=== PATIENT | male | born 1945 | race Caucasian/White ===

== ENCOUNTER 2016-06-02 13:15 | Outpatient (RCR) | payer MEDICARE, MEDICAID ==
[~2016-06-02] VITALS: Ht 182.9 cm; Wt 97.5 kg
[~2016-06-02 13:15] MED LIST: OXYCODONE HCL10 MG ORAL; PROGRAF1 MG ORAL
== END 2016-06-24 | disposition home or self-care (01) ==
LOC: WCC 13:15
DX: L97.322 Non-pressure chronic ulcer of left ankle with fat layer exposed (principal); L03.116 Cellulitis of left lower limb; R60.0 Localized edema; Z94.4 Liver transplant status
CPT/HCPCS: 11042; 11043; 87070; 87181; 87205

== ENCOUNTER → 2016-06-16 | Outpatient (CLI) | payer MEDICARE, MEDICAID ==
[~2016-06-16] MED LIST changes: +LEVAQUIN500 MG ORAL
--- NOTE | 2016-06-19 12:35 | Diagnostic Imaging Report ---
APPROVED REPORT CPT Code: 25591 Present Symptoms Lower Extremity Pain: Left Comments: Right foot ulcer R/O DVT Limited compression used due to pain. LEFT LEG: Venous imaging reveals a patent deep venous system. There is no evidence of thrombus within the femoral, popliteal or tibial segments. The greater saphenous vein is also within normal limits. Doppler indicates normal spontaneous flow within these segments.
== END | disposition home or self-care (01) ==
LOC: RAD 13:59
DX: I82.409 Acute embolism and thrombosis of unspecified deep veins of unspecified lower extremity (principal)
CPT/HCPCS: 93971

== ENCOUNTER 2016-06-30 13:00 | Outpatient (RCR) | payer MEDICARE, MEDICAID ==
[~2016-06-30 13:00] MED LIST changes: -LEVAQUIN500 MG ORAL
== END 2016-07-22 | disposition home or self-care (01) ==
LOC: WCC 13:00
DX: L97.322 Non-pressure chronic ulcer of left ankle with fat layer exposed (principal); L03.116 Cellulitis of left lower limb; R60.0 Localized edema
CPT/HCPCS: 11042; 15271; 29580; Q4133

== ENCOUNTER → 2016-07-09 | Outpatient (CLI) | payer MEDICARE, MEDICAID ==
[~2016-07-09] MED LIST changes: +LEVAQUIN500 MG ORAL
--- NOTE | 2016-07-09 16:01 | Diagnostic Imaging Report ---
Indication: Nonhealing wound Technique: Sagittal, axial, and coronal T1 weighted and STIR images of the left tibia and fibula Comparison: None Findings: A marker shine location of a wound in the medial right leg. There is some thickening of the dermis, but minimal if any edema of the subcutaneous fat. There is no evidence of osseous marrow abnormalities to suggest acute off myelitis. There is some edema of the anterolateral and posterolateral subcutaneous fat distally. No defined fluid collections to suggest abscess are evident. Impression: Mild soft tissue abnormality, as described No findings to suggest acute osteomyelitis
== END | disposition home or self-care (01) ==
LOC: MRI 14:11
DX: S81.801A Unspecified open wound, right lower leg, initial encounter (principal); X58.XXXA Exposure to other specified factors, initial encounter; Y93.9 Activity, unspecified; Y92.9 Unspecified place or not applicable

== ENCOUNTER 2016-07-28 12:30 | Outpatient (RCR) | payer MEDICARE, MEDICAID ==
[~2016-07-28 12:30] MED LIST changes: -LEVAQUIN500 MG ORAL
[2016-08-04] MEDS ORDERED: LEVAQUIN500 MG ORAL (18:38)
== END 2016-08-22 | disposition home or self-care (01) ==
LOC: WCC 12:30
DX: L97.322 Non-pressure chronic ulcer of left ankle with fat layer exposed (principal); L03.116 Cellulitis of left lower limb; R60.0 Localized edema; Z94.4 Liver transplant status; Z96.649 Presence of unspecified artificial hip joint
CPT/HCPCS: 11042; 15271; 29580; Q4133

== ENCOUNTER 2016-08-04 15:27 | Emergency (ER) | payer MEDICARE, MEDICAID ==
[~2016-08-04] VITALS: Ht 182.9 cm; Wt 98.0 kg
[2016-08-04 15:41] VITALS: BP 136/91
[2016-08-04 16:39] LABS: MEAN CORPUSCULAR HGB CONC 33.2 G/DL (32.0-36.0); MEAN CORPUSCULAR VOLUME 99 FL (80-99); MEAN PLATELET VOLUME 10.9 FL (6.5-10.1); PLATELET COUNT 92 K/UL (150-450); RED BLOOD COUNT 4.34 M/UL (4.70-6.10); RED CELL DISTRIBUTION WIDTH 13.4 % (11.6-14.8); WHITE BLOOD COUNT 8.8 K/UL (4.8-10.8)
[2016-08-04 16:47] LABS: ALANINE AMINOTRANSFERASE 10 U/L (3-41); ALBUMIN/GLOBULIN RATIO 1.2 (1.0-2.7); ANION GAP 15 (5-15); ASPARTATE AMINO TRANSFERASE 34 U/L (5-40); CALCIUM 9.4 mg/dL (8.6-10.2); CARBON DIOXIDE 24 mEQ/L (20-30); CHLORIDE 96 mEQ/L (98-107); CREATININE 2.3 mg/dL (0.7-1.2); HEMOLYSIS 10; LIPASE 15 U/L (< 60); POTASSIUM 4.6 mEQ/L (3.4-4.9); SODIUM 135 mEQ/L (135-145); TOTAL PROTEIN 7.3 g/dL (6.6-8.7)
[2016-08-04 16:51] LABS: TROPONIN I < 0.30 ng/mL (<=0.30)
[2016-08-04 16:57] LABS: CKMB < 1.5 ng/mL (< 6.7)
[2016-08-04 17:05] LABS: BILIRUBIN,DIRECT 0.3 mg/dL (0.1-0.3)
[2016-08-04 17:49] VITALS: BP 141/79
[2016-08-04 17:52] LABS: BAND NEUTROPHILS % (MANUAL) 3 % (0-8); BASOPHILS % (MANUAL) 0 % (0-2); EOSINOPHILS % (MANUAL) 0 % (0-3); LYMPHOCYTES % (MANUAL) 7 % (20-45); NEUTROPHILS % (MANUAL) 82 % (45-75); PLATELET ESTIMATE DECREASED; PLATELET MORPHOLOGY NORMAL; TOTAL CELLS COUNTED 100
[2016-08-04] MEDS ORDERED: LEVAQUIN500 MG ORAL (18:38)
[2016-08-04 18:52] VITALS: BP_SYST 135; BP_SYST 141; BP_DIAS 78; BP_DIAS 79
--- NOTE | 2016-08-07 23:05 | Emergency Room Report ---
History of Present Illness General Chief Complaint: General Complaint Source: Patient, Medical Record Present Illness HPI Patient presents with complaints of worsening redness to the left foot, patient has had long-standing wound care to that leg And now there is an open wound with discharge patient had a delineation of a black fer at the site of the infection and appears that the area has increased from that area Patient himself denies any fevers denies any chest pain or shortness of breath denies any back or flank pain Denies any vomiting or diarrhea Allergies: Coded Allergies: HEPARIN (Verified Allergy, Unknown, 07/09/15) pt does not know Patient History Past Medical History: see triage record Pertinent Family History: none Reviewed Nursing Documentation: PMH: Agreed, PSxH: Agreed Nursing Documentation-PMH Hx Cardiac Problems: No Hx Cancer: No Hx Gastrointestinal Problems: No Hx Dialysis: Yes - [id number] Hx Neurological Problems: No Review of Systems All Other Systems: negative except mentioned in HPI Physical Exam Vital Signs Date Time Temp Pulse Resp B/P Pulse Ox O2 Delivery O2 Flow Rate FiO2 08/04/16 15:31 99.1 106 16 136/91 95 Room Air Sp02 EP Interpretation: reviewed, normal General Appearance: no apparent distress Head: normocephalic, atraumatic Eyes: bilateral eye EOMI, bilateral eye PERRL ENT: normal pharynx Neck: full range of motion, supple Respiratory: lungs clear Cardiovascular #1: regular rate, rhythm, no edema, no gallop, no JVD Gastrointestinal: non tender, soft, no mass Musculoskeletal: normal inspection Neurologic: alert, oriented x3, responsive Skin: other - Patient has a concerning open wound on the left ankle region with erythema down to the toes and appears that the erythema is extending past the demarcated area Lymphatic: no adenopathy Medical Decision Making Diagnostic Impression: Primary Impression: AMA Additional Impression: open wound cellulitis ER Course Given the patient's history examined presentation Patient had blood work initiated along with IV hydration and antibiotics At this time discussion was made with the patient's resident program specialist He also agrees that given the aggressive nature of this infection and the patient's findings he requires admission to the hospital I discussed this with the patient Patient reports that he has multiple significant events coming up and cannot stay in the hospital he understands that leaving at this time currently to worsening symptoms a possible loss of limb, possible worsening symptoms leading to Patient is awake alert and refusing further inpatient care CBC 8 Platelets are low BUN and creatinine elevated at 26 and 2.3 respectively Last Vital Signs Date Time Temp Pulse Resp B/P Pulse Ox O2 Delivery O2 Flow Rate FiO2 08/04/16 18:52 99.1 79 16 141/79 99 Room Air Status: improved Disposition: AGAINST MEDICAL ADVICE Condition: Serious Scripts Levofloxacin* (LEVAQUIN*) 500 Mg Tablet 500 MG ORAL DAILY, #10 TAB Prov: MARCY DELACRUZ D.O. 08/04/16 Referrals: ELOISA JACOME (PCP) Patient Instructions: Cellulitis Additional Instructions: The wound that you have is extremely concerning, it is open in the area of redness that started to increase past the demarcated area by her specialist. The kidney function appears to be worsening from previous Given her immunocompromised state and the above mentioned reasons, it is important for you to be in the hospital Bleeding at this time AGAINST MEDICAL ADVICE, can lead to worsening symptoms, possible loss of life or limb. Given this information dorsal choosing to leave AGAINST MEDICAL ADVICE. MARCY DELACRUZ D.O. Aug 07, 2016 23:05
== END 2016-08-04 18:52 | disposition left against medical advice (07) ==
LOC: EDBEDREQ 16:26 → EMR 17:00
DX: S91.302A Unspecified open wound, left foot, initial encounter (principal); L03.116 Cellulitis of left lower limb; X58.XXXA Exposure to other specified factors, initial encounter; Y93.9 Activity, unspecified; Y92.9 Unspecified place or not applicable; Z88.8 Allergy status to other drugs, medicaments and biological substances
CPT/HCPCS: 36415; 80053; 82248; 82550; 82553; 83605; 83690; 84484; 85007; 85025; 87040; 87070; 87181; 87205; 96360; 96374; 99284; J1956

== ENCOUNTER 2016-08-25 13:00 | Outpatient (RCR) | payer MEDICARE, MEDICAID ==
[~2016-08-25 13:00] MED LIST changes: +LEVAQUIN500 MG ORAL
== END 2016-09-21 | disposition home or self-care (01) ==
LOC: WCC 13:00
DX: L97.322 Non-pressure chronic ulcer of left ankle with fat layer exposed (principal); L03.116 Cellulitis of left lower limb; R60.0 Localized edema; Z96.649 Presence of unspecified artificial hip joint; Z94.4 Liver transplant status; Z86.19 Personal history of other infectious and parasitic diseases
CPT/HCPCS: 15271; 29580; G0463; Q4133

== ENCOUNTER 2016-09-22 13:00 | Outpatient (RCR) | payer MEDICARE, MEDICAID ==
[~2016-09-22] VITALS: Ht 182.9 cm; Wt 97.5 kg
[2016-10-03] MEDS ORDERED: Lidocaine HCl 2% Jelly 5ml Tube TOPIC ONE (16:00)
== END 2016-10-22 | disposition home or self-care (01) ==
LOC: WCC 13:00
DX: L97.322 Non-pressure chronic ulcer of left ankle with fat layer exposed (principal); L03.116 Cellulitis of left lower limb; R60.0 Localized edema; Z94.4 Liver transplant status; Z86.19 Personal history of other infectious and parasitic diseases; Z96.649 Presence of unspecified artificial hip joint
CPT/HCPCS: 11042; 15271; 29580; G0463; Q4133

== ENCOUNTER 2017-01-12 13:12 | Outpatient (RCR) | payer MEDICARE, MEDICAID ==
[~2017-01-12] VITALS: Ht 182.9 cm; Wt 96.2 kg
== END 2017-01-22 | disposition home or self-care (01) ==
LOC: WCC 13:12
DX: L97.322 Non-pressure chronic ulcer of left ankle with fat layer exposed (principal); Z94.4 Liver transplant status; Z86.19 Personal history of other infectious and parasitic diseases
CPT/HCPCS: 11042; 15271; 29580; Q4106; Q4101

== ENCOUNTER 2017-01-23 15:30 | Outpatient (RCR) | payer MEDICARE, MEDICAID | END 2017-02-21 | disposition home or self-care (01) | LOC: WCC 15:30 | DX: L97.322 Non-pressure chronic ulcer of left ankle with fat layer exposed (principal); Z94.4 Liver transplant status; K74.60 Unspecified cirrhosis of liver; Z86.19 Personal history of other infectious and parasitic diseases | CPT/HCPCS: 11042; 15271; 29580; 87070; 87181; 87205; G0463; Q4133 ==

== ENCOUNTER 2017-02-23 13:13 | Outpatient (RCR) | payer MEDICARE, MEDICAID ==
[~2017-02-23] VITALS: Ht 182.9 cm; Wt 96.2 kg
== END 2017-03-24 | disposition home or self-care (01) ==
LOC: WCC 13:13
DX: L97.322 Non-pressure chronic ulcer of left ankle with fat layer exposed (principal); Z94.4 Liver transplant status; L97.923 Non-pressure chronic ulcer of unspecified part of left lower leg with necrosis of muscle; Z96.649 Presence of unspecified artificial hip joint; Z86.19 Personal history of other infectious and parasitic diseases
CPT/HCPCS: 11043; 15271; 29580; Q4133

== ENCOUNTER 2017-03-25 13:30 | Outpatient (RCR) | payer MEDICARE, MEDICAID ==
[~2017-03-25] VITALS: Ht 182.9 cm; Wt 96.2 kg
[2017-04-24] MEDS ORDERED: Lidocaine 4% Top Soln 50ml TOPIC ONE (09:45)
== END 2017-04-23 | disposition home or self-care (01) ==
LOC: WCC 13:30
DX: L97.322 Non-pressure chronic ulcer of left ankle with fat layer exposed (principal); L97.923 Non-pressure chronic ulcer of unspecified part of left lower leg with necrosis of muscle; Z94.4 Liver transplant status; Z96.649 Presence of unspecified artificial hip joint; Z86.19 Personal history of other infectious and parasitic diseases; K74.60 Unspecified cirrhosis of liver
CPT/HCPCS: 11043; 15271; 29580; 29581; Q4133

== ENCOUNTER 2017-04-29 14:02 | Outpatient (RCR) | payer MEDICARE, MEDICAID ==
[~2017-04-29] VITALS: Ht 182.9 cm; Wt 97.5 kg
== END 2017-05-24 | disposition home or self-care (01) ==
LOC: WCC 14:02
DX: L97.322 Non-pressure chronic ulcer of left ankle with fat layer exposed (principal); L97.923 Non-pressure chronic ulcer of unspecified part of left lower leg with necrosis of muscle; Z94.4 Liver transplant status
CPT/HCPCS: 11043; 15271; 29581; Q4133

== ENCOUNTER 2017-05-27 11:31 | Outpatient (RCR) | payer MEDICARE, MEDICAID ==
[~2017-05-27] VITALS: Ht 182.9 cm; Wt 96.2 kg
== END 2017-06-24 | disposition home or self-care (01) ==
LOC: WCC 11:31
DX: L97.322 Non-pressure chronic ulcer of left ankle with fat layer exposed (principal); L97.923 Non-pressure chronic ulcer of unspecified part of left lower leg with necrosis of muscle; Z94.4 Liver transplant status; Z96.649 Presence of unspecified artificial hip joint; Z86.19 Personal history of other infectious and parasitic diseases; K74.60 Unspecified cirrhosis of liver
CPT/HCPCS: 11042; 11043; 15271; 29580; Q4133

== ENCOUNTER 2017-06-03 15:27 | Inpatient (IN) | payer MEDICARE, MEDICAID ==
[~2017-06-03] VITALS: Ht 185.4 cm; Wt 95.3 kg
[2017-06-03] MEDS ORDERED: Sodium Chloride 500ML 500 ML IV ONE (16:10)
[2017-06-03 16:30] VITALS: BP 142/81
[2017-06-03 16:41] LABS: ANION GAP 8 mmol/L (5-15); BLOOD UREA NITROGEN 24 mg/dL (7-18); CALCIUM 8.5 MG/DL (8.5-10.1); CARBON DIOXIDE 25 MMOL/L (21-32); CHLORIDE 108 MMOL/L (98-107); CREATININE 2.2 MG/DL (0.55-1.30); POTASSIUM 4.7 MMOL/L (3.5-5.1); SODIUM 141 MMOL/L (136-145)
[2017-06-03 16:45] LABS: HEMATOCRIT 29.7 % (42.0-52.0); HEMOGLOBIN 9.6 G/DL (14.2-18.0); MEAN CORPUSCULAR VOLUME 103 FL (80-99); PLATELET COUNT 174 K/UL (150-450); RED BLOOD COUNT 2.88 M/UL (4.70-6.10); RED CELL DISTRIBUTION WIDTH 14.3 % (11.6-14.8); WHITE BLOOD COUNT 13.5 K/UL (4.8-10.8)
[2017-06-03 16:46] LABS: ALBUMIN 3.4 G/DL (3.4-5.0); ALBUMIN/GLOBULIN RATIO 1.1 (1.0-2.7); ALKALINE PHOSPHATASE 81 U/L (46-116); ASPARTATE AMINO TRANSFERASE 35 U/L (15-37); BILIRUBIN,TOTAL 0.4 MG/DL (0.2-1.0)
[2017-06-03 16:49] LABS: INR 0.9 (0.9-1.1)
[2017-06-03 17:13] LABS: ALANINE AMINOTRANSFERASE 14 U/L (12-78)
[2017-06-03 18:24] LABS: APPEARANCE,URINE CLEAR; BILIRUBIN, URINE NEGATIVE (NEGATIVE); GLUCOSE, URINE (UA) NEGATIVE (NEGATIVE); KETONES,URINE NEGATIVE (NEGATIVE); LEUKOCYTE ESTERASE ,URINE 1+ (NEGATIVE); NITRITE,URINE NEGATIVE (NEGATIVE); PH,URINE 5 (4.5-8.0); PROTEIN,URINE 2+ (NEGATIVE); UROBILINOGEN,URINE NORMAL MG/DL (0.0-1.0)
[2017-06-03 18:27] LABS: COLOR,URINE YELLOW
[2017-06-03] MEDS ORDERED: Morphine Sulfate 2mg/ml Inj IVP PRN (18:30)
[2017-06-03] MEDS ORDERED: oxyCODONE 5mg IR tab ORAL PRN (18:30)
[2017-06-03] MEDS ORDERED: Mylanta II UD 30ml ORAL PRN (18:30)
[2017-06-03] MEDS ORDERED: Nitroglycerin Subl 0.4mg tab SL PRN (18:30)
[2017-06-03 18:45] VITALS: BP 123/58
[2017-06-03] MEDS: D5NS 1,000 ML IV SCH (19:12)
[2017-06-03 19:39] VITALS: BP 131/82
[2017-06-03 20:52] VITALS: BP 133/71
[2017-06-03] MEDS ORDERED: Miralax 17gm pkt ORAL PRN (21:00)
--- NOTE | 2017-06-03 22:15 | Emergency Room Report ---
History of Present Illness General Chief Complaint: Generalized Weakness Source: Patient Present Illness HPI 72-year-old male presents to ED for evaluation. States he's been experiencing rectal bleeding for the last 5 days. States feeling weak and tired. Denies any pain. Denies any blood thinners per states has history of liver transplant. Denies fevers chills. Denies chest pain or shortness of breath. No other aggravating relieving factors. Denies any other associated symptoms Allergies: Coded Allergies: HEPARIN (Verified Allergy, Unknown, 07/09/15) pt does not know Patient History Past Medical History: none Past Surgical History: none Pertinent Family History: none Social History: Denies: smoking, alcohol use, drug use Immunizations: UTD Reviewed Nursing Documentation: PMH: Agreed, PSxH: Agreed Nursing Documentation-PMH Hx Cardiac Problems: No Hx Cancer: No Hx Gastrointestinal Problems: No Hx Dialysis: Yes - [id number] Hx Neurological Problems: No Review of Systems All Other Systems: negative except mentioned in HPI Physical Exam Vital Signs Date Time Temp Pulse Resp B/P (MAP) Pulse Ox O2 Delivery O2 Flow Rate FiO2 06/03/17 15:48 97.5 85 20 123/83 100 Room Air Sp02 EP Interpretation: reviewed, normal General Appearance: no apparent distress, alert, GCS 15, non-toxic Head: normocephalic, atraumatic Eyes: bilateral eye normal inspection, bilateral eye PERRL ENT: hearing grossly normal, normal pharynx, no angioedema, normal voice Neck: full range of motion, supple/symm/no masses Respiratory: chest non-tender, lungs clear, normal breath sounds, speaking full sentences Cardiovascular #1: regular rate, rhythm, no edema Cardiovascular #2: 2+ carotid (R), 2+ carotid (L), 2+ radial (R), 2+ radial (L) , 2+ dorsalis pedis (R), 2+ dorsalis pedis (L) Gastrointestinal: normal bowel sounds, non tender, soft, non-distended, no guarding, no rebound Rectal: blood streaked stool Genitourinary: normal inspection, no CVA tenderness Musculoskeletal: back normal, gait/station normal, normal range of motion, non- tender Neurologic: alert, oriented x3, responsive, motor strength/tone normal, sensory intact, speech normal Psychiatric: judgement/insight normal, memory normal, mood/affect normal, no suicidal/homicidal ideation Reflexes: 3+ bicep (R), 3+ bicep (L), 3+ tricep (R), 3+ tricep (L), 3+ knee (R) , 3+ knee (L) Skin: normal color, no rash, warm/dry, well hydrated Lymphatic: no adenopathy Medical Decision Making Diagnostic Impression: Primary Impression: Lower GI bleed ER Course Hospital Course 72-year-old M presents to ED with rectal bleeding Differential diagnoses include: UGIB, LGIB, hemorrhoids Clinical course Patient placed on stretcher. surveillance monitor. After initial history and physical I ordered labs, IV fluids, UA Labs - no leukocytosis, Hb/Hct stable. electrolytes ok. UA unremarkable PMD is Dr Beltran Case discussed with Dr. Sprague and he agreed to accept the patient to his service for further care and support I feel this is a highly complex case requiring extensive working including EKG/ Rhythm strip, Xray/CT/US, Blood/urine lab work, repeat exams while in ED, and administration of strong opiates/narcotics for pain control, admission to hospital or close patient follow up. Diagnosis - LGIB Patient admitted to telemetry in serious condition Labs Test 06/03/17 16:19 06/03/17 17:55 White Blood Count 13.5 K/UL (4.8-10.8) Red Blood Count 2.88 M/UL (4.70-6.10) Hemoglobin 9.6 G/DL (14.2-18.0) Hematocrit 29.7 % (42.0-52.0) Mean Corpuscular Volume 103 FL (80-99) Mean Corpuscular Hemoglobin 33.5 PG (27.0-31.0) Mean Corpuscular Hemoglobin Concent 32.5 G/DL (32.0-36.0) Red Cell Distribution Width 14.3 % (11.6-14.8) Platelet Count 174 K/UL (150-450) Mean Platelet Volume 8.8 FL (6.5-10.1) Neutrophils (%) (Auto) % (45.0-75.0) Lymphocytes (%) (Auto) % (20.0-45.0) Monocytes (%) (Auto) % (1.0-10.0) Eosinophils (%) (Auto) % (0.0-3.0) Basophils (%) (Auto) % (0.0-2.0) Differential Total Cells Counted 100 Neutrophils % (Manual) 87 % (45-75) Lymphocytes % (Manual) 9 % (20-45) Monocytes % (Manual) 3 % (1-10) Eosinophils % (Manual) 1 % (0-3) Basophils % (Manual) 0 % (0-2) Band Neutrophils 0 % (0-8) Platelet Estimate Adequate Platelet Morphology Normal Polychromasia 1+ Hypochromasia 1+ Anisocytosis 1+ Macrocytosis 1+ Prothrombin Time 9.6 SEC (9.30-11.50) Prothromb Time International Ratio 0.9 (0.9-1.1) Activated Partial Thromboplast Time 24 SEC (23-33) Sodium Level 141 MMOL/L (136-145) Potassium Level 4.7 MMOL/L (3.5-5.1) Chloride Level 108 MMOL/L (98-107) Carbon Dioxide Level 25 MMOL/L (21-32) Anion Gap 8 mmol/L (5-15) Blood Urea Nitrogen 24 mg/dL (7-18) Creatinine 2.2 MG/DL (0.55-1.30) Estimat Glomerular Filtration Rate mL/min (>60) Glucose Level 150 MG/DL (74-106) Calcium Level 8.5 MG/DL (8.5-10.1) Total Bilirubin 0.4 MG/DL (0.2-1.0) Aspartate Amino Transf (AST/SGOT) 35 U/L (15-37) Alanine Aminotransferase (ALT/SGPT) 14 U/L (12-78) Alkaline Phosphatase 81 U/L (46-116) Total Protein 6.5 G/DL (6.4-8.2) Albumin 3.4 G/DL (3.4-5.0) Globulin 3.1 g/dL Albumin/Globulin Ratio 1.1 (1.0-2.7) Lipase 77 U/L (73-393) Urine Color Yellow Urine Appearance Clear Urine pH 5 (4.5-8.0) Urine Specific [place] 1.015 (1.005-1.035) Urine Protein 2+ (NEGATIVE) Urine Glucose (UA) Negative (NEGATIVE) Urine Ketones Negative (NEGATIVE) Urine Occult Blood Negative (NEGATIVE) Urine Nitrite Negative (NEGATIVE) Urine Bilirubin Negative (NEGATIVE) Urine Urobilinogen Normal MG/DL (0.0-1.0) Urine Leukocyte Esterase 1+ (NEGATIVE) Urine RBC 0-2 /HPF (0 - 0) Urine WBC 2-4 /HPF (0 - 0) Urine Squamous Epithelial Cells None /LPF (NONE/OCC) Urine Bacteria Few /HPF (NONE) Last Vital Signs Date Time Temp Pulse Resp B/P (MAP) Pulse Ox O2 Delivery O2 Flow Rate FiO2 06/03/17 20:52 97.3 77 20 133/71 96 06/03/17 20:10 Room Air Status: improved Disposition: ADMITTED INPATIENT Condition: Serious Referrals: IVAN BELTRAN (PCP) ITA ÁLVAREZ M.D. Jun 03, 2017 22:15
[2017-06-04] VITALS: BP 145/78
[2017-06-04] MEDS: D5NS 1,000 ML IV SCH ×3 (04:04→23:48)
[2017-06-04 04:30] VITALS: BP 123/78
[2017-06-04 08:00] VITALS: BP 107/63
[2017-06-04 10:11] LABS: HEMATOCRIT 22.5 % (42.0-52.0); HEMOGLOBIN 7.6 G/DL (14.2-18.0); MEAN CORPUSCULAR VOLUME 102 FL (80-99); PLATELET COUNT 129 K/UL (150-450); RED CELL DISTRIBUTION WIDTH 14.4 % (11.6-14.8); WHITE BLOOD COUNT 7.5 K/UL (4.8-10.8)
[2017-06-04 11:00] LABS: ALANINE AMINOTRANSFERASE 9 U/L (12-78); ALBUMIN 2.6 G/DL (3.4-5.0); ALKALINE PHOSPHATASE 64 U/L (46-116); AMYLASE 33 U/L (25-115); ANION GAP 7 mmol/L (5-15); ASPARTATE AMINO TRANSFERASE 29 U/L (15-37); BILIRUBIN,TOTAL 0.4 MG/DL (0.2-1.0); BLOOD UREA NITROGEN 20 mg/dL (7-18); CALCIUM 7.9 MG/DL (8.5-10.1); CARBON DIOXIDE 24 MMOL/L (21-32); CHLORIDE 112 MMOL/L (98-107); CREATININE 1.9 MG/DL (0.55-1.30); POTASSIUM 4.5 MMOL/L (3.5-5.1); SODIUM 143 MMOL/L (136-145)
[2017-06-04 12:00] VITALS: BP 99/70
[2017-06-04 16:00] VITALS: BP 134/64
[2017-06-04] MEDS ORDERED: Polyethylene Glycol 238gm bottle ORAL ONE (16:00)
[2017-06-04] MEDS ORDERED: Magnesium Citrate Liq Btl ORAL ONE (16:00)
[2017-06-04] MEDS ORDERED: Bisacodyl EC 5mg tab ORAL ONE (16:00)
--- NOTE | 2017-06-04 16:16 | Consultation ---
History of Present Illness General Date patient seen: Jun 04, 2017 Chief Complaint: Generalized Weakness Reason for Consultation: inpatient management Present Illness HPI 72-year-old male with hx of liver transplant presented to ED for evaluation of rectal bleeding for the last 5 days. States feeling weak and tired. Denies any pain. Denies any blood thinners . Denies fevers chills. Denies chest pain or shortness of breath. Pt is admitted to telemetry for further management. Allergies: Coded Allergies: HEPARIN (Verified Allergy, Unknown, 07/09/15) pt does not know Medication History Scheduled Levofloxacin* (Levaquin*), 500 MG ORAL DAILY Tacrolimus (Prograf), 1 MG ORAL DAILY, (Reported) Tacrolimus (Prograf), 1.5 MG ORAL QHS, (Reported) Scheduled PRN Oxycodone Hcl* (Oxycodone Hcl*), 10 MG ORAL NEEDED PRN for For Pain, ( Reported) Patient History Healthcare decision maker Resuscitation status Full Code Advanced Directive on File No Past Medical/Surgical History Past Medical/Surgical History: (1) Liver transplant status Review of Systems Constitutional: Reports: no symptoms Eye: Reports: no symptoms Respiratory: Reports: no symptoms Cardiovascular: Reports: no symptoms Gastrointestinal: Reports: no symptoms, abdominal pain Physical Exam General Appearance: WD/WN Lines, tubes and drains: peripheral HEENT: normocephalic, atraumatic Neck: non-tender Respiratory/Chest: chest wall non-tender, normal breath sounds Breasts: no masses Cardiovascular/Chest: normal rate Last 24 Hour Vital Signs Date Time Temp Pulse Resp B/P (MAP) Pulse Ox O2 Delivery O2 Flow Rate FiO2 06/04/17 16:00 97.2 80 20 134/64 99 06/04/17 12:00 97.5 84 21 99/70 95 06/04/17 12:00 82 06/04/17 08:00 89 06/04/17 08:00 97.7 87 21 107/63 96 06/04/17 04:30 97.0 82 20 123/78 97 06/04/17 04:00 80 06/04/17 00:00 92 06/04/17 00:00 96.9 75 20 145/78 100 06/03/17 20:52 97.3 77 20 133/71 96 06/03/17 20:10 97.5 78 17 131/82 100 Room Air 1/10/18 19:39 78 17 131/82 100 Room Air 06/03/17 18:45 79 18 123/58 95 Room Air 06/03/17 16:30 85 16 142/81 98 Room Air Intake and Output 06/03/17 06/04/17 19:00 07:00 Intake Total 500 ml 1000 ml Output Total 100 ml Balance 400 ml 1000 ml Intake IV Total 500 ml 1000 ml Output Urine Total 100 ml # Voids 1 1 Laboratory Tests Test 06/03/17 16:19 06/03/17 17:55 06/04/17 05:30 06/04/17 09:35 White Blood Count 13.5 K/UL (4.8-10.8) H 7.5 K/UL (4.8-10.8) Red Blood Count 2.88 M/UL (4.70-6.10) L 2.20 M/UL (4.70-6.10) L Hemoglobin 9.6 G/DL (14.2-18.0) L 7.6 G/DL (14.2-18.0) L Hematocrit 29.7 % (42.0-52.0) L 22.5 % (42.0-52.0) L Mean Corpuscular Volume 103 FL (80-99) H 102 FL (80-99) H Mean Corpuscular Hemoglobin 33.5 PG (27.0-31.0) H 34.5 PG (27.0-31.0) H Mean Corpuscular Hemoglobin Concent 32.5 G/DL (32.0-36.0) 33.7 G/DL (32.0-36.0) Red Cell Distribution Width 14.3 % (11.6-14.8) 14.4 % (11.6-14.8) Platelet Count 174 K/UL (150-450) 129 K/UL (150-450) L Mean Platelet Volume 8.8 FL (6.5-10.1) 8.5 FL (6.5-10.1) Neutrophils (%) (Auto) % (45.0-75.0) % (45.0-75.0) Lymphocytes (%) (Auto) % (20.0-45.0) % (20.0-45.0) Monocytes (%) (Auto) % (1.0-10.0) % (1.0-10.0) Eosinophils (%) (Auto) % (0.0-3.0) % (0.0-3.0) Basophils (%) (Auto) % (0.0-2.0) % (0.0-2.0) Differential Total Cells Counted 100 100 Neutrophils % (Manual) 87 % (45-75) H 86 % (45-75) H Lymphocytes % (Manual) 9 % (20-45) L 9 % (20-45) L Monocytes % (Manual) 3 % (1-10) 3 % (1-10) Eosinophils % (Manual) 1 % (0-3) 1 % (0-3) Basophils % (Manual) 0 % (0-2) 1 % (0-2) Band Neutrophils 0 % (0-8) 0 % (0-8) Platelet Estimate Adequate Decreased L Platelet Morphology Normal Normal Polychromasia 1+ Hypochromasia 1+ 3+ Anisocytosis 1+ 1+ Macrocytosis 1+ 1+ Prothrombin Time 9.6 SEC (9.30-11.50) 10.2 SEC (9.30-11.50) Prothromb Time International Ratio 0.9 (0.9-1.1) 1.0 (0.9-1.1) Activated Partial Thromboplast Time 24 SEC (23-33) 26 SEC (23-33) Sodium Level 141 MMOL/L (136-145) 143 MMOL/L (136-145) Potassium Level 4.7 MMOL/L (3.5-5.1) 4.5 MMOL/L (3.5-5.1) Chloride Level 108 MMOL/L (98-107) H 112 MMOL/L (98-107) H Carbon Dioxide Level 25 MMOL/L (21-32) 24 MMOL/L (21-32) Anion Gap 8 mmol/L (5-15) 7 mmol/L (5-15) Blood Urea Nitrogen 24 mg/dL (7-18) H 20 mg/dL (7-18) H Creatinine 2.2 MG/DL (0.55-1.30) H 1.9 MG/DL (0.55-1.30) H Estimat Glomerular Filtration Rate mL/min (>60) mL/min (>60) Glucose Level 150 MG/DL (74-106) H 161 MG/DL (74-106) H Calcium Level 8.5 MG/DL (8.5-10.1) 7.9 MG/DL (8.5-10.1) L Total Bilirubin 0.4 MG/DL (0.2-1.0) 0.4 MG/DL (0.2-1.0) Aspartate Amino Transf (AST/SGOT) 35 U/L (15-37) 29 U/L (15-37) Alanine Aminotransferase (ALT/SGPT) 14 U/L (12-78) 9 U/L (12-78) L Alkaline Phosphatase 81 U/L (46-116) 64 U/L (46-116) Total Protein 6.5 G/DL (6.4-8.2) 5.1 G/DL (6.4-8.2) L Albumin 3.4 G/DL (3.4-5.0) 2.6 G/DL (3.4-5.0) L Globulin 3.1 g/dL 2.5 g/dL Albumin/Globulin Ratio 1.1 (1.0-2.7) 1.0 (1.0-2.7) Lipase 77 U/L (73-393) Urine Color Yellow Urine Appearance Clear Urine pH 5 (4.5-8.0) Urine Specific [place] 1.015 (1.005-1.035) Urine Protein 2+ (NEGATIVE) H Urine Glucose (UA) Negative (NEGATIVE) Urine Ketones Negative (NEGATIVE) Urine Occult Blood Negative (NEGATIVE) Urine Nitrite Negative (NEGATIVE) Urine Bilirubin Negative (NEGATIVE) Urine Urobilinogen Normal MG/DL (0.0-1.0) Urine Leukocyte Esterase 1+ (NEGATIVE) H Urine RBC 0-2 /HPF (0 - 0) H Urine WBC 2-4 /HPF (0 - 0) Urine Squamous Epithelial Cells None /LPF (NONE/OCC) Urine Bacteria Few /HPF (NONE) Stool Occult Blood Positive (NEGATIVE) Amylase Level 33 U/L (25-115) Height (Feet): 5 Height (Inches): 11.00 Weight (Pounds): 205 Medications Current Medications Medications (Trade) Dose Ordered Sig/Deanne Route PRN Reason Start Time Stop Time Status Last Admin Dose Admin Acetaminophen (Tylenol) 650 mg Q4H PRN ORAL T>100.5 06/03/17 18:30 07/03/17 18:29 Al Hydroxide/Mg Hydroxide (Mylanta II) 30 ml Q6H PRN ORAL dyspepsia 06/03/17 18:30 07/03/17 18:29 Dextrose (Dextrose 50%) STAT PRN IV Hypoglycemia 06/03/17 18:30 07/03/17 18:29 Dextrose/Sodium Chloride 1,000 ml @ 100 mls/hr Q10H IV 06/03/17 19:00 07/03/17 18:59 06/04/17 04:04 Diphenhydramine HCl (Benadryl) 25 mg Q6H PRN ORAL Itching/Pruritis 06/03/17 18:30 07/03/17 18:29 Morphine Sulfate (Morphine Sulfate) 2 mg Q4H PRN IVP Severe Pain (Pain Scale 7-10) 06/03/17 18:30 06/10/17 18:29 Nitroglycerin (Ntg) 0.4 mg Q5M X 3 DOSES PRN SL Prn Chest Pain 06/03/17 18:30 07/03/17 18:29 Ondansetron HCl (Zofran) 4 mg Q6H PRN IVP Nausea & Vomiting 06/03/17 18:30 07/03/17 18:29 Oxycodone HCl (Roxicodone) 10 mg Q4H PRN ORAL Moderate Pain (Pain Scale 4-6) 06/03/17 18:30 06/10/17 18:29 Polyethylene Glycol (Miralax) 17 gm HSPRN PRN ORAL Constipation 06/03/17 21:00 07/03/17 20:59 Sodium Phosphate (Fleet's Sodium Phosl Enema) 133 ml ONCE ONCE RECTAL 06/04/17 23:00 06/04/17 23:01 Tacrolimus (Prograf) 1 mg EVERY 12 HOURS ORAL 06/04/17 12:00 07/04/17 11:59 Temazepam (Restoril) 15 mg HSPRN PRN ORAL Insomnia 06/03/17 21:00 06/10/17 20:59 Assessment/Plan Problem List: (1) Lower GI bleed ICD Codes: K92.2 - Gastrointestinal hemorrhage, unspecified SNOMED: 12065650 (2) Liver transplant status ICD Codes: Z94.4 - Liver transplant status SNOMED: [id number], [id number], [id number], [id number] Assessment/Plan npo IV fluids prbc prn GI evaluation JULIANA GUNTER Jun 04, 2017 16:16
--- NOTE | 2017-06-04 17:40 | GI Initial Consult Note ---
PriyankaRosemarie César N.PHumera 06/04/17 1740: History of Present Illness General Date patient seen: Jun 04, 2017 Time patient seen: 11:00 Reason for Hospitalization: Generalized Weakness Referring physician: YANDEL GONZALEZ Reason for Consultation: LGIB Present Illness HPI 72-year-old male presents to ED for evaluation. States he's been experiencing rectal bleeding for the last 5 days. States feeling weak and tired. Denies any pain. Denies any blood thinners per states has history of liver transplant. Denies fevers chills. Denies chest pain or shortness of breath. No other aggravating relieving factors. Denies any other associated symptoms. GI consulted for LGIB. HPI as noted above. Pt seen on floor, awake A&Ox4 NAD with no active s/sx of N/V. C/o of rectal bleed, bright red blood x 6 days, states he's being losing a pint of blood every episode. Last colonoscopy was 6 years ago which was unremarkable at the time. He presents today with mild leukocytosis, anemia, positive occult blood for stool and renal insufficiency. Patient refuses to have EGD performed. Currently pending blood transfusion. Home Meds Active Scripts Levofloxacin* (LEVAQUIN*) 500 Mg Tablet, 500 MG ORAL DAILY, #10 TAB Prov:MARCY DELACRUZ D.O. 08/04/16 Reported Medications Oxycodone Hcl* (OXYCODONE HCL*) 10 Mg Tablet, 10 MG ORAL NEEDED Y for For Pain, TAB 07/09/15 Tacrolimus (Prograf) 1 Mg Cap, 1.5 MG ORAL QHS, #10 CAP 0 Refills 07/06/15 Tacrolimus (Prograf) 1 Mg Cap, 1 MG ORAL DAILY, #10 CAP 0 Refills 07/06/15 Med list reviewed/reconciled: Yes Allergies: Coded Allergies: HEPARIN (Verified Allergy, Unknown, 07/09/15) pt does not know Patient History History Provided By: Patient, Medical Record PMH Narrative Past Medical History: none Past Surgical History: none Pertinent Family History: none Social History: Denies: smoking, alcohol use, drug use Immunizations: UTD Reviewed Nursing Documentation: PMH: Agreed, PSxH: Agreed Nursing Documentation-PMH Hx Cardiac Problems: No Hx Cancer: No Hx Gastrointestinal Problems: No Hx Dialysis: Yes - [id number] Hx Neurological Problems: No Review of Systems All Other Systems: negative except mentioned in HPI Physical Exam Vital Signs Date Time Temp Pulse Resp B/P (MAP) Pulse Ox O2 Delivery O2 Flow Rate FiO2 06/03/17 15:48 97.5 85 20 123/83 100 Room Air Sp02 EP Interpretation: reviewed, normal Labs Laboratory Tests Test 06/03/17 17:55 06/04/17 05:30 06/04/17 09:35 Urine Color Yellow Urine Appearance Clear Urine pH 5 (4.5-8.0) Urine Specific [place] 1.015 (1.005-1.035) Urine Protein 2+ (NEGATIVE) H Urine Glucose (UA) Negative (NEGATIVE) Urine Ketones Negative (NEGATIVE) Urine Occult Blood Negative (NEGATIVE) Urine Nitrite Negative (NEGATIVE) Urine Bilirubin Negative (NEGATIVE) Urine Urobilinogen Normal MG/DL (0.0-1.0) Urine Leukocyte Esterase 1+ (NEGATIVE) H Urine RBC 0-2 /HPF (0 - 0) H Urine WBC 2-4 /HPF (0 - 0) Urine Squamous Epithelial Cells None /LPF (NONE/OCC) Urine Bacteria Few /HPF (NONE) Stool Occult Blood Positive (NEGATIVE) White Blood Count 7.5 K/UL (4.8-10.8) Red Blood Count 2.20 M/UL (4.70-6.10) L Hemoglobin 7.6 G/DL (14.2-18.0) L Hematocrit 22.5 % (42.0-52.0) L Mean Corpuscular Volume 102 FL (80-99) H Mean Corpuscular Hemoglobin 34.5 PG (27.0-31.0) H Mean Corpuscular Hemoglobin Concent 33.7 G/DL (32.0-36.0) Red Cell Distribution Width 14.4 % (11.6-14.8) Platelet Count 129 K/UL (150-450) L Mean Platelet Volume 8.5 FL (6.5-10.1) Neutrophils (%) (Auto) % (45.0-75.0) Lymphocytes (%) (Auto) % (20.0-45.0) Monocytes (%) (Auto) % (1.0-10.0) Eosinophils (%) (Auto) % (0.0-3.0) Basophils (%) (Auto) % (0.0-2.0) Differential Total Cells Counted 100 Neutrophils % (Manual) 86 % (45-75) H Lymphocytes % (Manual) 9 % (20-45) L Monocytes % (Manual) 3 % (1-10) Eosinophils % (Manual) 1 % (0-3) Basophils % (Manual) 1 % (0-2) Band Neutrophils 0 % (0-8) Platelet Estimate Decreased L Platelet Morphology Normal Hypochromasia 3+ Anisocytosis 1+ Macrocytosis 1+ Prothrombin Time 10.2 SEC (9.30-11.50) Prothromb Time International Ratio 1.0 (0.9-1.1) Activated Partial Thromboplast Time 26 SEC (23-33) Sodium Level 143 MMOL/L (136-145) Potassium Level 4.5 MMOL/L (3.5-5.1) Chloride Level 112 MMOL/L (98-107) H Carbon Dioxide Level 24 MMOL/L (21-32) Anion Gap 7 mmol/L (5-15) Blood Urea Nitrogen 20 mg/dL (7-18) H Creatinine 1.9 MG/DL (0.55-1.30) H Estimat Glomerular Filtration Rate mL/min (>60) Glucose Level 161 MG/DL (74-106) H Calcium Level 7.9 MG/DL (8.5-10.1) L Total Bilirubin 0.4 MG/DL (0.2-1.0) Aspartate Amino Transf (AST/SGOT) 29 U/L (15-37) Alanine Aminotransferase (ALT/SGPT) 9 U/L (12-78) L Alkaline Phosphatase 64 U/L (46-116) Total Protein 5.1 G/DL (6.4-8.2) L Albumin 2.6 G/DL (3.4-5.0) L Globulin 2.5 g/dL Albumin/Globulin Ratio 1.0 (1.0-2.7) Amylase Level 33 U/L (25-115) General Appearance: well appearing, no apparent distress, alert Head: normocephalic EENT: PERRL/EOMI, normal ENT inspection Neck: supple Respiratory: normal breath sounds, no respiratory distress Cardiovascular: normal rate Gastrointestinal: normal inspection, non tender, soft, normal bowel sounds, non -distended Rectal: deferred Genitourinary: deferred Musculoskeletal: normal inspection, back normal Neurologic: normal inspection, alert, oriented x3, responsive Psychiatric: normal inspection, judgement/insight normal, memory normal Skin: normal inspection, normal color, no rash, warm/dry, palpation normal, well hydrated Lymphatic: normal inspection, no adenopathy Current Medications Current Medications Medications (Trade) Dose Ordered Sig/Deanne Route PRN Reason Start Time Stop Time Status Last Admin Dose Admin Acetaminophen (Tylenol) 650 mg Q4H PRN ORAL T>100.5 06/03/17 18:30 07/03/17 18:29 Al Hydroxide/Mg Hydroxide (Mylanta II) 30 ml Q6H PRN ORAL dyspepsia 06/03/17 18:30 07/03/17 18:29 Dextrose (Dextrose 50%) STAT PRN IV Hypoglycemia 06/03/17 18:30 07/03/17 18:29 Dextrose/Sodium Chloride 1,000 ml @ 100 mls/hr Q10H IV 06/03/17 19:00 07/03/17 18:59 06/04/17 04:04 Diphenhydramine HCl (Benadryl) 25 mg Q6H PRN ORAL Itching/Pruritis 06/03/17 18:30 07/03/17 18:29 Morphine Sulfate (Morphine Sulfate) 2 mg Q4H PRN IVP Severe Pain (Pain Scale 7-10) 06/03/17 18:30 06/10/17 18:29 Nitroglycerin (Ntg) 0.4 mg Q5M X 3 DOSES PRN SL Prn Chest Pain 06/03/17 18:30 07/03/17 18:29 Ondansetron HCl (Zofran) 4 mg Q6H PRN IVP Nausea & Vomiting 06/03/17 18:30 07/03/17 18:29 Oxycodone HCl (Roxicodone) 10 mg Q4H PRN ORAL Moderate Pain (Pain Scale 4-6) 06/03/17 18:30 06/10/17 18:29 Polyethylene Glycol (Miralax) 17 gm HSPRN PRN ORAL Constipation 06/03/17 21:00 07/03/17 20:59 Sodium Phosphate (Fleet's Sodium Phosl Enema) 133 ml ONCE ONCE RECTAL 06/04/17 23:00 06/04/17 23:01 Tacrolimus (Prograf) 1 mg EVERY 12 HOURS ORAL 06/04/17 12:00 07/04/17 11:59 Temazepam (Restoril) 15 mg HSPRN PRN ORAL Insomnia 06/03/17 21:00 06/10/17 20:59 GI: Plan Problems: (1) Lower GI bleed Plan OB stool positive colonoscopy scheduled for tomorrow. - CLD now, NPO @ [facility]. - hold all blood thinners prn transfusions ppi abx fu labs Discussed with Dr. Perez. Thank you for this patient referral, we will follow. NIKOLAS PEREZ 06/08/17 1014: History of Present Illness General Reason for Hospitalization: Generalized Weakness Present Illness Home Meds Active Scripts Levofloxacin* (LEVAQUIN*) 500 Mg Tablet, 500 MG ORAL DAILY, #10 TAB Prov:MARCY DELACRUZ D.O. 08/04/16 Reported Medications Oxycodone Hcl* (OXYCODONE HCL*) 10 Mg Tablet, 10 MG ORAL NEEDED Y for For Pain, TAB 07/09/15 Tacrolimus (Prograf) 1 Mg Cap, 1.5 MG ORAL QHS, #10 CAP 0 Refills 07/06/15 Tacrolimus (Prograf) 1 Mg Cap, 1 MG ORAL DAILY, #10 CAP 0 Refills 07/06/15 Allergies: Coded Allergies: HEPARIN (Verified Allergy, Unknown, 07/09/15) pt does not know GI: Plan Plan The patient was seen and examined at bedside and all new and available data was reviewed in the patients chart. I agree with the above findings, impression and plan. (Patient seen earlier today. Signature stamp does not reflect patient encounter time.). - MD Priyanka Pathak,[facility] César N.P. Jun 04, 2017 17:40 NIKOLAS PEREZ Jun 08, 2017 10:14
--- NOTE | 2017-06-04 18:16 | Consultation ---
History of Present Illness General Date patient seen: Jun 04, 2017 Time patient seen: 18:13 Chief Complaint: Generalized Weakness Referring physician: YANDEL GONZALEZ Reason for Consultation: LGIB Present Illness HPI 72 y/o M with hx of liver transplant 2010, hx of hepatorenal requiring HD 2010- 2011, hemorroids presents to ED on 06/03 with 5 days of rectal bleeding, weakness Denies f/c, pain, CP, SOB, n/v, abd pain. Patient afebrile, mild leukocytosis upon admission, now resolved. ALBAN, improving. Refuse EGD. For colo tomorrow Allergies: Coded Allergies: HEPARIN (Verified Allergy, Unknown, 07/09/15) pt does not know Medication History Scheduled Levofloxacin* (Levaquin*), 500 MG ORAL DAILY Tacrolimus (Prograf), 1 MG ORAL DAILY, (Reported) Tacrolimus (Prograf), 1.5 MG ORAL QHS, (Reported) Scheduled PRN Oxycodone Hcl* (Oxycodone Hcl*), 10 MG ORAL NEEDED PRN for For Pain, ( Reported) Patient History Healthcare decision maker Resuscitation status Full Code Advanced Directive on File No Patient History Narrative PMhx: as above Shx: Denies: smoking, alcohol use, drug use Fhx: non contributory Review of Systems All Other Systems: negative except mentioned in HPI Physical Exam Physical Exam Narrative General Appearance: WD/WN Lines, tubes and drains: peripheral HEENT: normocephalic, atraumatic Neck: non-tender Respiratory/Chest: chest wall non-tender, normal breath sounds Abd: hyperactive BS, s+D, NT, ND Cardiovascular/Chest: normal rate Skin: clean based ulcer with granulation tissue on medial aspect of L inferior leg, no signs of infection Last 24 Hour Vital Signs Date Time Temp Pulse Resp B/P (MAP) Pulse Ox O2 Delivery O2 Flow Rate FiO2 06/04/17 16:00 97.2 80 20 134/64 99 06/04/17 16:00 102 06/04/17 12:00 97.5 84 21 99/70 95 06/04/17 12:00 82 06/04/17 08:00 89 06/04/17 08:00 97.7 87 21 107/63 96 06/04/17 04:30 97.0 82 20 123/78 97 1/11/18 04:00 80 06/04/17 00:00 92 06/04/17 00:00 96.9 75 20 145/78 100 06/03/17 20:52 97.3 77 20 133/71 96 06/03/17 20:10 97.5 78 17 131/82 100 Room Air 06/03/17 19:39 78 17 131/82 100 Room Air 06/03/17 18:45 79 18 123/58 95 Room Air Intake and Output 06/03/17 06/04/17 19:00 07:00 Intake Total 500 ml 1000 ml Output Total 100 ml Balance 400 ml 1000 ml Intake IV Total 500 ml 1000 ml Output Urine Total 100 ml # Voids 1 1 Laboratory Tests Test 06/04/17 05:30 06/04/17 09:35 Stool Occult Blood Positive (NEGATIVE) White Blood Count 7.5 K/UL (4.8-10.8) Red Blood Count 2.20 M/UL (4.70-6.10) L Hemoglobin 7.6 G/DL (14.2-18.0) L Hematocrit 22.5 % (42.0-52.0) L Mean Corpuscular Volume 102 FL (80-99) H Mean Corpuscular Hemoglobin 34.5 PG (27.0-31.0) H Mean Corpuscular Hemoglobin Concent 33.7 G/DL (32.0-36.0) Red Cell Distribution Width 14.4 % (11.6-14.8) Platelet Count 129 K/UL (150-450) L Mean Platelet Volume 8.5 FL (6.5-10.1) Neutrophils (%) (Auto) % (45.0-75.0) Lymphocytes (%) (Auto) % (20.0-45.0) Monocytes (%) (Auto) % (1.0-10.0) Eosinophils (%) (Auto) % (0.0-3.0) Basophils (%) (Auto) % (0.0-2.0) Differential Total Cells Counted 100 Neutrophils % (Manual) 86 % (45-75) H Lymphocytes % (Manual) 9 % (20-45) L Monocytes % (Manual) 3 % (1-10) Eosinophils % (Manual) 1 % (0-3) Basophils % (Manual) 1 % (0-2) Band Neutrophils 0 % (0-8) Platelet Estimate Decreased L Platelet Morphology Normal Hypochromasia 3+ Anisocytosis 1+ Macrocytosis 1+ Prothrombin Time 10.2 SEC (9.30-11.50) Prothromb Time International Ratio 1.0 (0.9-1.1) Activated Partial Thromboplast Time 26 SEC (23-33) Sodium Level 143 MMOL/L (136-145) Potassium Level 4.5 MMOL/L (3.5-5.1) Chloride Level 112 MMOL/L (98-107) H Carbon Dioxide Level 24 MMOL/L (21-32) Anion Gap 7 mmol/L (5-15) Blood Urea Nitrogen 20 mg/dL (7-18) H Creatinine 1.9 MG/DL (0.55-1.30) H Estimat Glomerular Filtration Rate mL/min (>60) Glucose Level 161 MG/DL (74-106) H Calcium Level 7.9 MG/DL (8.5-10.1) L Total Bilirubin 0.4 MG/DL (0.2-1.0) Aspartate Amino Transf (AST/SGOT) 29 U/L (15-37) Alanine Aminotransferase (ALT/SGPT) 9 U/L (12-78) L Alkaline Phosphatase 64 U/L (46-116) Total Protein 5.1 G/DL (6.4-8.2) L Albumin 2.6 G/DL (3.4-5.0) L Globulin 2.5 g/dL Albumin/Globulin Ratio 1.0 (1.0-2.7) Amylase Level 33 U/L (25-115) Height (Feet): 5 Height (Inches): 11.00 Weight (Pounds): 205 Medications Current Medications Medications (Trade) Dose Ordered Sig/Deanne Route PRN Reason Start Time Stop Time Status Last Admin Dose Admin Acetaminophen (Tylenol) 650 mg Q4H PRN ORAL T>100.5 06/03/17 18:30 07/03/17 18:29 Al Hydroxide/Mg Hydroxide (Mylanta II) 30 ml Q6H PRN ORAL dyspepsia 06/03/17 18:30 07/03/17 18:29 Dextrose (Dextrose 50%) STAT PRN IV Hypoglycemia 06/03/17 18:30 07/03/17 18:29 Dextrose/Sodium Chloride 1,000 ml @ 100 mls/hr Q10H IV 1/10/18 19:00 07/03/17 18:59 06/04/17 04:04 Diphenhydramine HCl (Benadryl) 25 mg Q6H PRN ORAL Itching/Pruritis 06/03/17 18:30 07/03/17 18:29 Morphine Sulfate (Morphine Sulfate) 2 mg Q4H PRN IVP Severe Pain (Pain Scale 7-10) 06/03/17 18:30 06/10/17 18:29 Nitroglycerin (Ntg) 0.4 mg Q5M X 3 DOSES PRN SL Prn Chest Pain 06/03/17 18:30 07/03/17 18:29 Ondansetron HCl (Zofran) 4 mg Q6H PRN IVP Nausea & Vomiting 06/03/17 18:30 07/03/17 18:29 Oxycodone HCl (Roxicodone) 10 mg Q4H PRN ORAL Moderate Pain (Pain Scale 4-6) 06/03/17 18:30 06/10/17 18:29 Polyethylene Glycol (Miralax) 17 gm HSPRN PRN ORAL Constipation 06/03/17 21:00 07/03/17 20:59 Sodium Phosphate (Fleet's Sodium Phosl Enema) 133 ml ONCE ONCE RECTAL 06/04/17 23:00 06/04/17 23:01 Tacrolimus (Prograf) 1 mg EVERY 12 HOURS ORAL 06/04/17 12:00 07/04/17 11:59 Temazepam (Restoril) 15 mg HSPRN PRN ORAL Insomnia 06/03/17 21:00 06/10/17 20:59 Assessment/Plan Assessment/Plan Abx: none Assessment: LGIB Leukocytosis- resolved- likely reactive to bleeding -afebrile -u/a neg ALBAN, improving Hx of liver transplant 2010 L leg chronic non healing ulcer- no signs of infection Plan: -continue to monitor off abx -f/u cx -Monitor CBC/CMP, temperatures -colonoscopy am -Aspiration precautions Thank you for this consultation. Will continue to follow along with you. Discussed with Pippa Du M.D. Jun 04, 2017 18:16
--- NOTE | 2017-06-04 18:59 | History & Physical ---
History and Physical History & Physicial Dictated for Int Medicine - Dr Sprague no. [id number]. SINDHU VALVERDE Jun 04, 2017 18:59
--- NOTE | 2017-06-04 21:01 | History and Physical Report ---
DATE OF ADMISSION: 06/03/2017 CHIEF COMPLAINT: The patient is a 72-year-old male, who presents with chief complaint of rectal bleeding. HISTORY OF PRESENT ILLNESS: The patient has a history of hemorrhoids. The patient presented to [facility] stating painless bright red bleeding from the rectum. This has been occurring for five days. The patient presented to [facility]. The patient was admitted for lower gastrointestinal hemorrhage. PAST MEDICAL HISTORY: Significant for: 1. Hepatitis C, status post liver transplant. 2. End-stage renal disease, secondary to hepatorenal syndrome, status post hemodialysis previously. 3. Hypertension. PAST SURGICAL HISTORY: Significant for: 1. Liver transplant. 2. Left hip replacement. CURRENT MEDICATIONS: 1. Oxycodone 10 mg p.o. q.6 h. p.r.n. 2. Prograf 1 mg p.o. daily. ALLERGIES: To heparin. SOCIAL HISTORY: The patient is . The patient denies tobacco or alcohol use. REVIEW OF SYSTEMS: CONSTITUTIONAL: The patient denies weight loss or weight gain. The patient denies fevers or chills. HEENT: The patient denies ear or throat pain. The patient denies headache. CARDIOVASCULAR: The patient denies palpitations or chest pain. CHEST: The patient denies wheeze or shortness of breath. ABDOMINAL: The patient complains of rectal bleeding as above. The patient denies nausea, vomiting, diarrhea, or constipation. GENITOURINARY: The patient denies dysuria or increased frequency of urination. NEUROMUSCULAR: The patient denies seizures or generalized weakness. PHYSICAL EXAMINATION: VITAL SIGNS: Temperature 96.9 degrees, respirations 20, pulse 92, and blood pressure 145/70. GENERAL: The patient is a well-developed, well-nourished white male, in no apparent distress. HEENT: Eyes, pupils are equal and responsive to light and accommodation. Extraocular movements are intact. NECK: Supple without lymphadenopathy. CHEST: Lungs are clear to auscultation bilaterally without wheezes or rales. CARDIOVASCULAR: Regular rate. S1 and S2 are normal without murmurs, rubs, or gallops. ABDOMEN: Soft, nontender, and nondistended. Positive bowel sounds. No evidence of hepatosplenomegaly. Currently, no rebound or guarding noted. RECTAL: Refused. GENITAL: Refused. EXTREMITIES: Negative for clubbing, cyanosis, or edema. NEUROLOGIC: Cranial nerves II through XII are grossly intact without focal deficits. Motor strength is 5/5 bilaterally. Deep tendon reflexes 2+ plantar. LABORATORY STUDIES: WBC 13.5, hemoglobin 9.6, hematocrit 29.7, and platelets 174,000. Sodium 141, potassium 4.7, chloride 108, CO2 25, BUN 24, creatinine 2.2, and glucose 150. ASSESSMENT: This is a 72-year-old white male with: 1. Lower gastrointestinal hemorrhage. 2. Hypertension. 3. Hepatitis C. 4. End-stage renal disease. TREATMENT: 1. Lower gastrointestinal hemorrhage. Gastroenterology consultation is pending with with Dr. Satya Osman. A colonoscopy may be required during this hospitalization. We will follow recommendations of Gastroenterology. Serial CBCs will be performed. 2. Hypertension. The patient is currently hypotensive. Hold antihypertensive medication. 3. Hepatitis C. The patient is status post liver transplant. 4. End-stage renal disease. A Nephrology consultation is pending with Dr. Razo. Vladimir Tolbert M.D. DR: Nohelia JOB#: [id number] CC:
[2017-06-04] MEDS ORDERED: Fleet's Enema 133ml RECTAL ONE (23:00)
[2017-06-05] VITALS (10 sets, daily range): BP systolic 115–151; BP diastolic 65–89
--- NOTE | 2017-06-05 06:51 | Anethesia Preoperative Eval ---
Anesthesia Pre-op PMH/ROS General Date of Evaluation: Jun 05, 2017 Time of Evaluation: 06:47 Anesthesiologist: facundo ASA Score: ASA 4 Mallampati Score Class I : Soft palate, uvula, fauces, pillars visible Class II: Soft palate, uvula, fauces visible Class III: Soft palate, base of uvula visible Class IV: Only hard plate visible Mallampati Classification: Class II Surgeon: clarisa Diagnosis: lgib Surgical Procedure: colonoscopy Anesthesia History: none Social History: smoking - nonsmoker Family History: no anesthesia problems Allergies: Coded Allergies: HEPARIN (Verified Allergy, Unknown, 07/09/15) pt does not know Medications: see eMAR Past Medical History Gastrointestinal/Genitourinary: Reports: other - hep C, liver transplant, hemorrhoids, esrd on dialysis Hematology/Immune: Reports: anemia, other - mumps Musculoskeletal/Integumentary: Reports: other - left cole Anesthesia Pre-op Phys. Exam Physician Exam Last Vital Signs Date Time Temp Pulse Resp B/P (MAP) Pulse Ox O2 Delivery O2 Flow Rate FiO2 06/05/17 04:00 74 06/05/17 00:30 98.0 20 138/66 96 Room Air Constitutional: NAD Neurologic: CN 2-12 intact Cardiovascular: RRR Respiratory: CTA Gastrointestinal: S/NT/ND Airway Exam Mallampati Score: Class II MO: full Neck: supple TMD: 2fb ROM: limited Anesthesia Pre-op A/P Labs Hematology Test 06/04/17 09:35 White Blood Count 7.5 K/UL (4.8-10.8) Red Blood Count 2.20 M/UL (4.70-6.10) L Hemoglobin 7.6 G/DL (14.2-18.0) L Hematocrit 22.5 % (42.0-52.0) L Mean Corpuscular Volume 102 FL (80-99) H Mean Corpuscular Hemoglobin 34.5 PG (27.0-31.0) H Mean Corpuscular Hemoglobin Concent 33.7 G/DL (32.0-36.0) Red Cell Distribution Width 14.4 % (11.6-14.8) Platelet Count 129 K/UL (150-450) L Mean Platelet Volume 8.5 FL (6.5-10.1) Neutrophils (%) (Auto) % (45.0-75.0) Lymphocytes (%) (Auto) % (20.0-45.0) Monocytes (%) (Auto) % (1.0-10.0) Eosinophils (%) (Auto) % (0.0-3.0) Basophils (%) (Auto) % (0.0-2.0) Differential Total Cells Counted 100 Neutrophils % (Manual) 86 % (45-75) H Lymphocytes % (Manual) 9 % (20-45) L Monocytes % (Manual) 3 % (1-10) Eosinophils % (Manual) 1 % (0-3) Basophils % (Manual) 1 % (0-2) Band Neutrophils 0 % (0-8) Platelet Estimate Decreased L Platelet Morphology Normal Hypochromasia 3+ Anisocytosis 1+ Macrocytosis 1+ Coagulation Test 06/04/17 09:35 Prothrombin Time 10.2 SEC (9.30-11.50) Prothromb Time International Ratio 1.0 (0.9-1.1) Activated Partial Thromboplast Time 26 SEC (23-33) Chemistry Test 06/04/17 09:35 Sodium Level 143 MMOL/L (136-145) Potassium Level 4.5 MMOL/L (3.5-5.1) Chloride Level 112 MMOL/L (98-107) H Carbon Dioxide Level 24 MMOL/L (21-32) Anion Gap 7 mmol/L (5-15) Blood Urea Nitrogen 20 mg/dL (7-18) H Creatinine 1.9 MG/DL (0.55-1.30) H Estimat Glomerular Filtration Rate mL/min (>60) Glucose Level 161 MG/DL (74-106) H Calcium Level 7.9 MG/DL (8.5-10.1) L Total Bilirubin 0.4 MG/DL (0.2-1.0) Aspartate Amino Transf (AST/SGOT) 29 U/L (15-37) Alanine Aminotransferase (ALT/SGPT) 9 U/L (12-78) L Alkaline Phosphatase 64 U/L (46-116) Total Protein 5.1 G/DL (6.4-8.2) L Albumin 2.6 G/DL (3.4-5.0) L Globulin 2.5 g/dL Albumin/Globulin Ratio 1.0 (1.0-2.7) Amylase Level 33 U/L (25-115) Risk Assessment & Plan Assessment: [email or web address] Plan: mac Status Change Before Surgery: No Pre-Antibiotics Drug: LISA Boothe Jun 05, 2017 06:51
[2017-06-05 09:30] LABS: ANION GAP 7 mmol/L (5-15); BLOOD UREA NITROGEN 18 mg/dL (7-18); CARBON DIOXIDE 26 MMOL/L (21-32); CHLORIDE 112 MMOL/L (98-107); CREATININE 1.7 MG/DL (0.55-1.30); POTASSIUM 3.8 MMOL/L (3.5-5.1); SODIUM 145 MMOL/L (136-145)
[2017-06-05 09:37] LABS: EOSINOPHILS % (AUTO) 1.2 % (0.0-3.0); HEMATOCRIT 24.7 % (42.0-52.0); HEMOGLOBIN 8.6 G/DL (14.2-18.0); LYMPHOCYTES % (AUTO) 24.6 % (20.0-45.0); MEAN CORPUSCULAR VOLUME 100 FL (80-99); MONOCYTES % (AUTO) 6.8 % (1.0-10.0); NEUTROPHILS % (AUTO) 66.5 % (45.0-75.0); PLATELET COUNT 115 K/UL (150-450); RED BLOOD COUNT 2.46 M/UL (4.70-6.10); RED CELL DISTRIBUTION WIDTH 15.8 % (11.6-14.8); WHITE BLOOD COUNT 5.3 K/UL (4.8-10.8)
[2017-06-05 09:40] LABS: INR 0.9 (0.9-1.1)
--- NOTE | 2017-06-05 10:04 | Pre-Procedure Note/Attestation ---
Pre-Procedure Note/Attestation Complete Prior to Procedure Planned Procedure: not applicable Procedure Narrative: colonoscopy Indications for Procedure Pre-Operative Diagnosis: rectal bleed Attestation I attest that I discussed the nature of the procedure; its benefits; risks and complications; and alternatives (and the risks and benefits of such alternatives ), prior to the procedure, with the patient (or the patient's legal telephone services sales representative). I attest that, if there was a reasonable possibility of needing a blood transfusion, the patient (or the patient's legal telephone services sales representative) was given the [facility] standardized written summary, pursuant to the Robert Gabo Blood Safety Act ([place] Health and Safety Code # 1645, as amended). I attest that I re-evaluated the patient just prior to the surgery and that there has been no change in the patient's H&P, except as documented below: NIKOLAS PEREZ Jun 05, 2017 10:04
--- NOTE | 2017-06-05 10:05 | General Progress Note ---
Assessment/Plan Problem List: (1) Lower GI bleed ICD Codes: K92.2 - Gastrointestinal hemorrhage, unspecified SNOMED: 75588080 Assessment/Plan plan colonoscopy today Subjective ROS Limited/Unobtainable: Yes Allergies: Coded Allergies: HEPARIN (Verified Allergy, Unknown, 07/09/15) pt does not know Objective Last 24 Hour Vital Signs Date Time Temp Pulse Resp B/P (MAP) Pulse Ox O2 Delivery O2 Flow Rate FiO2 06/05/17 08:00 97.5 80 20 151/89 99 Room Air 06/05/17 04:00 74 06/05/17 00:30 98.0 88 20 138/66 96 Room Air 06/05/17 00:00 92 06/04/17 20:00 86 06/04/17 16:00 97.2 80 20 134/64 99 06/04/17 16:00 102 06/04/17 12:00 97.5 84 21 99/70 95 06/04/17 12:00 82 Intake and Output 06/04/17 06/05/17 19:00 07:00 Intake Total 4000 ml 1000 ml Output Total 4000 ml Balance 0 ml 1000 ml Intake Oral 3500 ml IV Total 1000 ml Other 500 ml Output Urine Total 4000 ml # Voids 5 2 # Bowel Movements 3 Laboratory Tests 06/05/17 07:30: White Blood Count 5.3, Red Blood Count 2.46L, Hemoglobin 8.6L, Hematocrit 24.7L , Mean Corpuscular Volume 100H, Mean Corpuscular Hemoglobin 34.9H, Mean Corpuscular Hemoglobin Concent 34.8, Red Cell Distribution Width 15.8H, Platelet Count 115L, Mean Platelet Volume 9.0, Neutrophils (%) (Auto) 66.5, Lymphocytes (%) (Auto) 24.6, Monocytes (%) (Auto) 6.8, Eosinophils (%) (Auto) 1.2, Basophils (%) (Auto) 1.0, Prothrombin Time 9.8, Prothromb Time International Ratio 0.9, Activated Partial Thromboplast Time 25, Sodium Level 145, Potassium Level 3.8, Chloride Level 112H, Carbon Dioxide Level 26, Anion Gap 7, Blood Urea Nitrogen 18, Creatinine 1.7H, Estimat Glomerular Filtration Rate , Glucose Level 87, Calcium Level 8.0L Height (Feet): 6 Height (Inches): 1.00 Weight (Pounds): 210 General Appearance: alert EENT: normal ENT inspection Neck: supple Cardiovascular: normal rate Respiratory/Chest: decreased breath sounds Abdomen: normal bowel sounds, non tender, soft Extremities: non-tender NIKOLAS PEREZ Jun 05, 2017 10:05
[2017-06-05] MEDS: D5NS 1,000 ML IV SCH (11:37)
--- NOTE | 2017-06-05 12:03 | Pre-Procedure Note/Attestation ---
Pre-Procedure Note/Attestation Complete Prior to Procedure Procedure Narrative: colonoscopy Indications for Procedure Pre-Operative Diagnosis: rectal bleed Attestation I attest that I discussed the nature of the procedure; its benefits; risks and complications; and alternatives (and the risks and benefits of such alternatives ), prior to the procedure, with the patient (or the patient's legal public relations representative). I attest that, if there was a reasonable possibility of needing a blood transfusion, the patient (or the patient's legal public relations representative) was given the [facility] standardized written summary, pursuant to the [employer] Mckin[place] Blood Safety Act ([place] Health and Safety Code # 1645, as amended). I attest that I re-evaluated the patient just prior to the surgery and that there has been no change in the patient's H&P, except as documented below: NIKOLAS PEREZ Jun 05, 2017 12:03
[2017-06-05] MEDS ORDERED: NS 500ML IV ONE (12:06)
--- NOTE | 2017-06-05 12:30 | Endoscopy Procedure Note ---
Endoscopy Procedure Note Indication for Procedure: GIB Procedures Performed: colonoscopy Operative Findings/Diagnosis: DIVERTICULOSIS Specimen: none Pt Tolerated Procedure Well: Yes Estimated Blood Loss: none Anesthesiologist: BETTY Anesthesia: MAC Implant(s) used?: No 50 yrs or older w/o bx or poly: Not Applicable 10yrs. F/U not recommended: Not Applicable NIKOLAS PEREZ Jun 05, 2017 12:30
[2017-06-05] MEDS ORDERED: fentaNYL 100 mcg/2 mL IV PRN (12:45)
[2017-06-05] MEDS ORDERED: Atropine Inj 1mg/10ml Syr IV PRN (12:45)
[2017-06-05] MEDS ORDERED: DiphenhydrAMINE 50mg/ml Inj IVP PRN (12:45)
[2017-06-05] MEDS ORDERED: Midazolam 2mg/2ml Inj IVP PRN (12:45)
--- NOTE | 2017-06-05 13:11 | Immediate Post-Op Evaluation ---
Immediate Post-Op Evalulation Immediate Post-Op Evalulation Procedure: colonoscopy Date of Evaluation: Jun 05, 2017 Time of Evaluation: 12:47 IV Fluids: 75ml 0.9ns Blood Products: none Estimated Blood Loss: negligible Blood Pressure Systolic: 132 Blood Pressure Diastolic: 77 Pulse Rate: 78 Respiratory Rate: 18 O2 Sat by Pulse Oximetry: 99 Temperature (Fahrenheit): 98.2 Pain Score (1-10): 0 Nausea: No Vomiting: No Complications none Patient Status: awake, reacts, patent Hydration Status: adequate Drug: LISA Boothe Jun 05, 2017 13:11
--- NOTE | 2017-06-05 13:13 | 48 Hour Post Anesthesia Eval ---
Post Anesthesia Evaluation Procedure: colonoscopy Date of Evaluation: Jun 05, 2017 Time of Evaluation: 12:49 Blood Pressure Systolic: 123 0: 77 Pulse Rate: 77 Respiratory Rate: 18 Temperature (Fahrenheit): 98.2 O2 Sat by Pulse Oximetry: 99 Airway: patent Nausea: No Vomiting: No Pain Intensity: 0 Hydration Status: adequate Cardiopulmonary Status: stable Mental Status/LOC: patient returned to baseline Post-Anesthesia Complications: none Follow-up care needed: N/A LISA CUTLER Jun 05, 2017 13:13
--- NOTE | 2017-06-05 13:22 | Cardiology Report ---
APPROVED REPORT EKG Measurement Heart [id number] Normal sinus rhythm with sinus arrhythmia Anterior infarct, age undetermined Abnormal ECG
--- NOTE | 2017-06-05 15:44 | Pulmonology Progress Note ---
Assessment/Plan Problems: (1) Lower GI bleed (2) Liver transplant status Assessment/Plan h/h stable check cbc in am endoscopy showed diverticulosis symptomatic treatment Subjective ROS Limited/Unobtainable: No Constitutional: Reports: no symptoms HEENT: Repors: no symptoms Respiratory: Reports: no symptoms Cardiovascular: Reports: no symptoms Allergies: Coded Allergies: HEPARIN (Verified Allergy, Unknown, 07/09/15) pt does not know Objective Last 24 Hour Vital Signs Date Time Temp Pulse Resp B/P (MAP) Pulse Ox O2 Delivery O2 Flow Rate FiO2 06/05/17 13:13 77 18 99 06/05/17 13:11 78 18 99 06/05/17 13:05 82 21 126/72 99 Room Air 06/05/17 13:00 98.4 80 21 127/65 99 Room Air 06/05/17 12:55 83 21 122/74 98 Room Air 06/05/17 12:50 80 21 125/74 98 Room Air 06/05/17 12:45 79 21 132/77 100 Simple Mask 8.0 06/05/17 12:40 78 19 115/69 99 Simple Mask 8.0 06/05/17 12:35 98.2 81 19 115/69 100 Simple Mask 8.0 06/05/17 12:00 90 06/05/17 08:00 85 06/05/17 08:00 97.5 80 20 151/89 99 Room Air 06/05/17 04:00 74 06/05/17 00:30 98.0 88 20 138/66 96 Room Air 06/05/17 00:00 92 06/04/17 20:00 86 06/04/17 16:00 97.2 80 20 134/64 99 06/04/17 16:00 102 Intake and Output 06/04/17 06/05/17 19:00 07:00 Intake Total 4000 ml 1000 ml Output Total 4000 ml Balance 0 ml 1000 ml Intake Oral 3500 ml IV Total 1000 ml Other 500 ml Output Urine Total 4000 ml # Voids 5 2 # Bowel Movements 3 General Appearance: WD/WN HEENT: normocephalic, atraumatic Respiratory/Chest: chest wall non-tender, lungs clear Cardiovascular: normal peripheral pulses, normal rate Abdomen: normal bowel sounds, soft, non tender Extremities: no cyanosis Skin: no ulcers Neurologic/Psychiatric: no motor/sensory deficits Lymphatic: no neck adenopathy Microbiology Date/Time Source Procedure Growth Status 06/03/17 14:30 Leg Left Gram Stain - Final Resulted 06/03/17 14:30 Wound Culture - Preliminary Staphylococcus Aureus Gram Negative Roland Resulted Laboratory Tests 06/05/17 07:30: White Blood Count 5.3, Red Blood Count 2.46L, Hemoglobin 8.6L, Hematocrit 24.7L , Mean Corpuscular Volume 100H, Mean Corpuscular Hemoglobin 34.9H, Mean Corpuscular Hemoglobin Concent 34.8, Red Cell Distribution Width 15.8H, Platelet Count 115L, Mean Platelet Volume 9.0, Neutrophils (%) (Auto) 66.5, Lymphocytes (%) (Auto) 24.6, Monocytes (%) (Auto) 6.8, Eosinophils (%) (Auto) 1.2, Basophils (%) (Auto) 1.0, Prothrombin Time 9.8, Prothromb Time International Ratio 0.9, Activated Partial Thromboplast Time 25, Sodium Level 145, Potassium Level 3.8, Chloride Level 112H, Carbon Dioxide Level 26, Anion Gap 7, Blood Urea Nitrogen 18, Creatinine 1.7H, Estimat Glomerular Filtration Rate , Glucose Level 87, Calcium Level 8.0L Current Medications Medications (Trade) Dose Ordered Sig/Deanne Route PRN Reason Start Time Stop Time Status Last Admin Dose Admin Acetaminophen (Tylenol) 650 mg Q4H PRN ORAL T>100.5 06/03/17 18:30 07/03/17 18:29 Al Hydroxide/Mg Hydroxide (Mylanta II) 30 ml Q6H PRN ORAL dyspepsia 06/03/17 18:30 07/03/17 18:29 Al Hydroxide/Mg Hydroxide (Mylanta) 15 ml Q1H PRN ORAL gi upset 06/05/17 12:45 06/05/17 17:00 Atropine Sulfate (Atropine) 0.5 mg Q5M PRN IV bpm less than 45 06/05/17 12:45 06/05/17 17:00 Diphenhydramine HCl (Benadryl) 25 mg Q15M PRN IVP Itching 06/05/17 12:45 06/05/17 17:00 Diphenhydramine HCl (Benadryl) 25 mg Q6H PRN ORAL Itching/Pruritis 06/03/17 18:30 2/9/18 18:29 Fentanyl Citrate (Sublimaze 100 mcg/2 mL) 25 mcg Q10M PRN IV Moderate Pain (Pain Scale 4-6) 06/05/17 12:45 06/05/17 17:00 Hydralazine HCl (Apresoline) 5 mg Q30M PRN IV SBP>160 OR___/DBP>90 OR___ 06/05/17 12:45 06/05/17 17:00 Midazolam HCl (Versed 2mg/2ml vial) 1 mg Q15M PRN IVP For Anxiety 06/05/17 12:45 06/05/17 17:00 Morphine Sulfate (Morphine Sulfate) 2 mg Q4H PRN IVP Severe Pain (Pain Scale 7-10) 06/03/17 18:30 06/10/17 18:29 Nitroglycerin (Ntg) 0.4 mg Q5M X 3 DOSES PRN SL Prn Chest Pain 06/03/17 18:30 07/03/17 18:29 Ondansetron HCl (Zofran) 4 mg Q1H PRN IVP Nausea & Vomiting 06/05/17 12:45 06/05/17 17:00 Ondansetron HCl (Zofran) 4 mg Q6H PRN IVP Nausea & Vomiting 06/03/17 18:30 07/03/17 18:29 Oxycodone HCl (Roxicodone) 10 mg Q4H PRN ORAL Moderate Pain (Pain Scale 4-6) 06/03/17 18:30 06/10/17 18:29 Polyethylene Glycol (Miralax) 17 gm HSPRN PRN ORAL Constipation 06/03/17 21:00 07/03/17 20:59 Tacrolimus (Prograf) 1 mg EVERY 12 HOURS ORAL 06/04/17 12:00 07/04/17 11:59 06/04/17 20:24 Temazepam (Restoril) 15 mg HSPRN PRN ORAL Insomnia 06/03/17 21:00 06/10/17 20:59 06/04/17 23:41 JULIANA GUNTER Jun 05, 2017 15:44
--- NOTE | 2017-06-05 16:31 | Internal Med Progress Note ---
Subjective Physician Name Roque Sprague Attending Physician Roque Sprague MD Current Medications Medications (Trade) Dose Ordered Sig/Deanne Route PRN Reason Start Time Stop Time Status Last Admin Dose Admin Acetaminophen (Tylenol) 650 mg Q4H PRN ORAL T>100.5 06/03/17 18:30 07/03/17 18:29 Al Hydroxide/Mg Hydroxide (Mylanta II) 30 ml Q6H PRN ORAL dyspepsia 06/03/17 18:30 07/03/17 18:29 Al Hydroxide/Mg Hydroxide (Mylanta) 15 ml Q1H PRN ORAL gi upset 06/05/17 12:45 06/05/17 17:00 Atropine Sulfate (Atropine) 0.5 mg Q5M PRN IV bpm less than 45 06/05/17 12:45 06/05/17 17:00 Diphenhydramine HCl (Benadryl) 25 mg Q15M PRN IVP Itching 06/05/17 12:45 06/05/17 17:00 Diphenhydramine HCl (Benadryl) 25 mg Q6H PRN ORAL Itching/Pruritis 06/03/17 18:30 07/03/17 18:29 Fentanyl Citrate (Sublimaze 100 mcg/2 mL) 25 mcg Q10M PRN IV Moderate Pain (Pain Scale 4-6) 06/05/17 12:45 06/05/17 17:00 Hydralazine HCl (Apresoline) 5 mg Q30M PRN IV SBP>160 OR___/DBP>90 OR___ 06/05/17 12:45 06/05/17 17:00 Midazolam HCl (Versed 2mg/2ml vial) 1 mg Q15M PRN IVP For Anxiety 06/05/17 12:45 06/05/17 17:00 Morphine Sulfate (Morphine Sulfate) 2 mg Q4H PRN IVP Severe Pain (Pain Scale 7-10) 06/03/17 18:30 06/10/17 18:29 Nitroglycerin (Ntg) 0.4 mg Q5M X 3 DOSES PRN SL Prn Chest Pain 06/03/17 18:30 07/03/17 18:29 Ondansetron HCl (Zofran) 4 mg Q1H PRN IVP Nausea & Vomiting 1/12/18 12:45 06/05/17 17:00 Ondansetron HCl (Zofran) 4 mg Q6H PRN IVP Nausea & Vomiting 06/03/17 18:30 07/03/17 18:29 Oxycodone HCl (Roxicodone) 10 mg Q4H PRN ORAL Moderate Pain (Pain Scale 4-6) 06/03/17 18:30 06/10/17 18:29 Polyethylene Glycol (Miralax) 17 gm HSPRN PRN ORAL Constipation 06/03/17 21:00 07/03/17 20:59 Tacrolimus (Prograf) 1 mg EVERY 12 HOURS ORAL 06/04/17 12:00 07/04/17 11:59 06/05/17 16:06 Temazepam (Restoril) 15 mg HSPRN PRN ORAL Insomnia 06/03/17 21:00 06/10/17 20:59 06/04/17 23:41 Allergies: Coded Allergies: HEPARIN (Verified Allergy, Unknown, 07/09/15) pt does not know Subjective awake, alert, responsive, No more bleeding Just back from endoscopy suite. Objective Last Vital Signs Date Time Temp Pulse Resp B/P (MAP) Pulse Ox O2 Delivery O2 Flow Rate FiO2 06/05/17 13:13 77 18 99 06/05/17 13:05 126/72 Room Air 06/05/17 13:00 98.4 06/05/17 12:45 8.0 Laboratory Tests Test 06/05/17 07:30 White Blood Count 5.3 K/UL (4.8-10.8) Red Blood Count 2.46 M/UL (4.70-6.10) L Hemoglobin 8.6 G/DL (14.2-18.0) L Hematocrit 24.7 % (42.0-52.0) L Mean Corpuscular Volume 100 FL (80-99) H Mean Corpuscular Hemoglobin 34.9 PG (27.0-31.0) H Mean Corpuscular Hemoglobin Concent 34.8 G/DL (32.0-36.0) Red Cell Distribution Width 15.8 % (11.6-14.8) H Platelet Count 115 K/UL (150-450) L Mean Platelet Volume 9.0 FL (6.5-10.1) Neutrophils (%) (Auto) 66.5 % (45.0-75.0) Lymphocytes (%) (Auto) 24.6 % (20.0-45.0) Monocytes (%) (Auto) 6.8 % (1.0-10.0) Eosinophils (%) (Auto) 1.2 % (0.0-3.0) Basophils (%) (Auto) 1.0 % (0.0-2.0) Prothrombin Time 9.8 SEC (9.30-11.50) Prothromb Time International Ratio 0.9 (0.9-1.1) Activated Partial Thromboplast Time 25 SEC (23-33) Sodium Level 145 MMOL/L (136-145) Potassium Level 3.8 MMOL/L (3.5-5.1) Chloride Level 112 MMOL/L (98-107) H Carbon Dioxide Level 26 MMOL/L (21-32) Anion Gap 7 mmol/L (5-15) Blood Urea Nitrogen 18 mg/dL (7-18) Creatinine 1.7 MG/DL (0.55-1.30) H Estimat Glomerular Filtration Rate mL/min (>60) Glucose Level 87 MG/DL (74-106) Calcium Level 8.0 MG/DL (8.5-10.1) L Microbiology Date/Time Source Procedure Growth Status 06/03/17 14:30 Leg Left Gram Stain - Final Resulted 06/03/17 14:30 Wound Culture - Preliminary Staphylococcus Aureus Gram Negative Roland Resulted Intake and Output 06/04/17 06/05/17 19:00 07:00 Intake Total 4000 ml 1000 ml Output Total 4000 ml Balance 0 ml 1000 ml Intake Oral 3500 ml IV Total 1000 ml Other 500 ml Output Urine Total 4000 ml # Voids 5 2 # Bowel Movements 3 Objective General: No acute distress, awake and alert HEENT: NCAT, sclera anicteric, PERRL, EOMI. Neck: Supple, no significant jugular venous distention, Lungs: Good inspiratory effort, clear to auscultation bilaterally, no Wheeze or Rales. Heart: Regular rate and rhythm, normal S1/S2, no murmurs Abdomen: soft, nontender, nondistended. Normoactive bowel sounds.Obesity. / Rectal: Refused and deferred. Extremities: No Cyanosis , clubbing or edema. Hyperpigmented LE's, Left leg dressing. Neuro: A&O x 3, Able to move all extremities Skin: warm, no rashes or lesions Psych: Normal mood and affect Assessment/Plan Assessment/Plan 1. Hepatitis C, status post liver transplant. 2. End-stage renal disease, secondary to hepatorenal syndrome, status post hemodialysis previously. 3. Hypertension. 4. Rectal bleeding possible from diverticular bleed Plan: Monitor Labs S/P EGD / colonoscopy today advance diet DC Planning in AM F/U with GI Roque Valle MD Jun 05, 2017 16:31
--- NOTE | 2017-06-05 17:02 | Wound Care Consultation ---
Wound Assessment Wound Assessment : Wound Number: 1 Wound Present on Admission: Yes New Wound: No Status Change of Wound: No Wound Location Body Site Modif: left, lower, medial Wound Location Body Site: leg Wound Type: vascular issue w/vascular changes Didi Test: Does not Didi Wound Thickness: Full Thickness Wound Length: 3.5 Wound Width: 2.5 Wound Depth: 0.1 Percent of Wound [place]/Red: 100 Wound Drainage Description: Serosanguineous Wound Drainage Amount: Scant Wound Drainage Odor: None/Absent Tissue Surrounding Wound: Indurated Wound General Appearance: Reddened, Draining Wound Comment #1 Open wound on left medial lower leg. Wound appears to be Venous stasis ulcer. #2 Hemosiderin staining on both lower legs Recommendation -Cleanse with saline, pat dry, apply hydrogel to wound bed, cover with calcium alginate, wrap with Kerlix daily and PRN soiled/dislodged -Optimize nutrition -Assess and f/u accordingly for any changes TAPAN COLON RN Jun 05, 2017 17:02
--- NOTE | 2017-06-05 17:45 | Procedure Note ---
DATE OF PROCEDURE: 06/05/2017 SURGEON: Satya Osman M.D. PROCEDURE: Colonoscopy. ANESTHESIOLOGIST: Yokasta Hill M.D. INSTRUMENT: Olympus adult flexible colonoscope. INDICATION: Rectal bleeding. REASON FOR PROCEDURE: The procedure, risks, benefits, and possible consequences, including hemorrhage, aspiration, perforation and infection, and alternative treatments, were explained to the patient/legal guardian by Dr. Satya Osman and the patient/legal guardian understood and accepted these risks. DESCRIPTION OF PROCEDURE: After informed consent was obtained and the patient was adequately sedated, first rectal exam was performed, which shows normal. Then, the scope was advanced from the rectum into the cecum. Quality of prep unfortunately was not great and the cecum was covered with solid stools, so examination of the cecum was almost impossible. There was fluid covering about another 10% to 15% of the colonic mucosa especially in the descending colon and sigmoid area. Examination of those areas was also limited. The patient had evidence of a moderate diverticulosis mostly in the left colon. No obvious mass, polyp, or active bleeding at this time. Retroflexion of rectum showed evidence of small internal hemorrhoids. SUMMARY OF FINDINGS: 1. Diverticulosis. 2. Internal hemorrhoids. 3. Poor colonic prep. RECOMMENDATIONS: 1. Resume diet. 2. Monitor laboratories. 3. Possibly, the patient bled from the diverticulosis. The patient most probably will need a repeat colonoscopy with better prep if he rebleeds. I want to thank, Dr. Roque Sprague and Dr. Valverde, for this kind referral. Satya Osman M.D. DR: BENJY JOB#: [id number] CC: Roque Sprague M.D.; Fax#: [phone] SINDHU VALVERDE M.D. ; FAX#: [phone]
[2017-06-05] MEDS ORDERED: Tubing Blood Filter IV ONE (18:05)
[2017-06-05] MEDS ORDERED: NS 110ml ONE (18:05)
[2017-06-05] MEDS ORDERED: NS 275ml ONE (18:05)
[2017-06-05] MEDS ORDERED: Propofol 200mg/20ml IV ONE (18:05)
[2017-06-05] MEDS ORDERED: Lidocaine 1% MPF 10mg/ml 5ml ONE (18:05)
[2017-06-05] MEDS ORDERED: D5NS 1000ml IV ONE (18:05)
--- NOTE | 2017-06-06 15:27 | Cardiology Report ---
APPROVED REPORT EKG Measurement Heart [id number] NE 150P4 [id number] Normal sinus rhythm Cannot rule out Anterior infarct, age undetermined Abnormal ECG
--- NOTE | 2017-06-08 09:40 | Discharge Summary ---
Discharge Summary Hospital Course Date of Admission Jun 03, 2017 at 17:10 Date of Discharge Jun 05, 2017 at 18:06 Admitting Diagnosis LOWER GI BLEED HPI Christiano Arroyo is a 72 year old male who was admitted on Jun 03, 2017 at 17:10 for Lower Gastro Intestinal Bleed Hospital Course dc summary #[id number] Discharge Discharge Disposition Patient signed AMA Discharge Diagnoses: Discharge Instructions Discharge Instructions Special Instructions I have been assigned to complete a D/C Summary on this account. I was not involved in the patient management Maliha Renae NP (Vanchtein) Jun 08, 2017 09:40
--- NOTE | 2017-06-09 01:45 | Discharge Summary 2 SIG ---
DATE OF ADMISSION: 06/03/2017 DATE OF DISCHARGE: 06/05/2017 REASON FOR ADMISSION: 72-year-old male with history of hepatitis C, status post liver transplant, history of end-stage renal disease secondary to hepatorenal syndrome requiring hemodialysis, currently off hemodialysis, and hypertension, presented with painless bright red bleeding from rectum for five days. Upon evaluation in the emergency room, WBC -13.5, hemoglobin -9.6, hematocrit- 29.7, BUN- 24, and creatinine -2.2. Electrolytes stable. Urinalysis negative. The patient was admitted for lower GI bleeding, hypertension, hepatitis C, status post liver transplant, and acute kidney injury on chronic kidney disease. HOSPITAL COURSE: The patient was admitted. GI consult requested. The patient was on the IV fluids. All antihypertensive medications were on hold since the patient was hypotensive. Gastrointestinal specialist seen and evaluated the patient and scheduled the patient for colonoscopy with preparation. Stool for OB was positive. Pain management was provided. The patient was started on PPI. The patient subsequently undergone colonoscopy, which revealed poor preparation, internal hemorrhoids, and diverticulosis. Per GI, the patient likely bled from diverticulosis, however, the patient will need to repeat colonoscopy due to poor preparation. Infectious Disease specialist seen and evaluated the patient due to leukocytosis , present on admission, which resolved the next day. According to the ID specialist, leukocytosis was likely reactive secondary to bleeding. No evidence of acute infection. UA negative. No respiratory symptoms. Patient with left leg chronic nonhealing ulcer, present on admission, Ulcer did not appear to be infected. ID specialist recommended to keep the patient off antibiotics. Wound care provided as per wound nurse recombinations. Venous duplex of bilateral lower extremities was negative. Next day after admission, hemoglobin and hematocrit dropped to 7.6 and 22.5 respectively. The patient undergone transfusion of one unit of packed red blood cells. Next day after transfusion, hemoglobin- 8.6 and hematocrit- 24.7. As mentioned above, leukocytosis resolved. With IV hydration, creatinine down from 2.2 on admission to 1.7. The patient decided to sign against medical advice. The risks and consequences of signing against medical advice were discussed with the patient. The patient verbalized understanding. Nevertheless he signed the form and left. FINAL DIAGNOSES: 1. Rectal bleeding, possibly from diverticular bleeding. 2. Hepatitis C , status post liver transplant. 3. End-stage renal disease secondary to hepatorenal syndrome, status post hemodialysis previously. 4. Acute kidney injury on chronic kidney disease, resolved. 5. Hypertension. Roque Sprague M.D. I have been assigned to dictate discharge summary on this account and I was not involved in the patient's management. Maliha Renae (Vanchtein) NDonte DR: WANG JOB#: [id number] CC: JOSE
--- NOTE | 2017-06-21 20:37 | Diagnostic Imaging Report ---
APPROVED REPORT CPT Code: 29737 Present Symptoms Lower Extremity Pain: BILATERAL LOWER EXTREMITY VENOUS DUPLEX: Imaging reveals a patent deep venous system bilaterally. There is no evidence of thrombus within the femoral, popliteal or tibial segments. The greater saphenous veins are also within normal limits. Doppler indicates normal spontaneous flow within these segments. The calf veins were not well visualized bilaterally.
== END 2017-06-05 18:06 | disposition left against medical advice (07) | DRG 377 ==
LOC: EMR 17:00 → 2E 17:10 → EDBEDREQ 18:47
PROC: 30233N1 Transfusion of Nonautologous Red Blood Cells into Peripheral Vein, Percutaneous Approach (ICD-10-PCS; principal; 2017-06-04)
PROC: 0DJD8ZZ Inspection of Lower Intestinal Tract, Via Natural or Artificial Opening Endoscopic (ICD-10-PCS; 2017-06-05)
DX: K57.91 Diverticulosis of intestine, part unspecified, without perforation or abscess with bleeding (principal); N18.6 End stage renal disease; K76.7 Hepatorenal syndrome; N17.9 Acute kidney failure, unspecified; Z94.4 Liver transplant status; I12.0 Hypertensive chronic kidney disease with stage 5 chronic kidney disease or end stage renal disease; L97.829 Non-pressure chronic ulcer of other part of left lower leg with unspecified severity; Z86.19 Personal history of other infectious and parasitic diseases; Z99.2 Dependence on renal dialysis; Z96.642 Presence of left artificial hip joint; Z88.8 Allergy status to other drugs, medicaments and biological substances; K64.8 Other hemorrhoids
CPT/HCPCS: 36415; 80048; 80053; 81003; 82150; 82270; 83690; 85007; 85025; 85610; 85730; 86850; 86900; 86901; 86920; 87070; 87181; 87205; 93005; 93970; 94003; 94150; 99285

== ENCOUNTER 2017-06-29 12:59 | Outpatient (RCR) | payer MEDICARE, MEDICAID | END 2017-07-22 | disposition home or self-care (01) | LOC: WCC 12:59 | DX: L97.322 Non-pressure chronic ulcer of left ankle with fat layer exposed (principal); R21 Rash and other nonspecific skin eruption; Z94.4 Liver transplant status; Z96.649 Presence of unspecified artificial hip joint; L03.116 Cellulitis of left lower limb; Z86.19 Personal history of other infectious and parasitic diseases | CPT/HCPCS: 11042; 15271; 29580; 87070; 87181; 87205; Q4133 ==

== ENCOUNTER 2017-07-27 13:02 | Outpatient (RCR) | payer MEDICARE, MEDICAID | END 2017-08-22 | disposition home or self-care (01) | LOC: WCC 13:02 | DX: L97.322 Non-pressure chronic ulcer of left ankle with fat layer exposed (principal); L03.116 Cellulitis of left lower limb; Z94.4 Liver transplant status; Z96.649 Presence of unspecified artificial hip joint; Z86.19 Personal history of other infectious and parasitic diseases | CPT/HCPCS: 11042; 29581 ==

== ENCOUNTER 2017-08-24 08:55 | Outpatient (RCR) | payer MEDICARE, MEDICAID | END 2017-09-21 | disposition home or self-care (01) | LOC: WCC 08:55 | DX: L97.322 Non-pressure chronic ulcer of left ankle with fat layer exposed (principal); L03.116 Cellulitis of left lower limb; Z94.4 Liver transplant status; Z86.19 Personal history of other infectious and parasitic diseases; Z96.649 Presence of unspecified artificial hip joint | CPT/HCPCS: 11042; 15271; 29580; Q4131 ==

== ENCOUNTER 2017-09-28 13:00 | Outpatient (RCR) | payer MEDICARE, MEDICAID | END 2017-10-22 | disposition home or self-care (01) | LOC: WCC 13:00 | DX: L97.322 Non-pressure chronic ulcer of left ankle with fat layer exposed (principal); L03.116 Cellulitis of left lower limb; Z94.4 Liver transplant status; Z96.649 Presence of unspecified artificial hip joint; Z86.19 Personal history of other infectious and parasitic diseases | CPT/HCPCS: 11042; 15271; 29580; Q4133 ==

== ENCOUNTER 2017-10-26 12:11 | Outpatient (RCR) | payer MEDICARE, MEDICAID | END 2017-11-21 | disposition home or self-care (01) | LOC: WCC 12:11 | DX: L97.322 Non-pressure chronic ulcer of left ankle with fat layer exposed (principal); L03.116 Cellulitis of left lower limb; Z94.4 Liver transplant status; Z96.649 Presence of unspecified artificial hip joint; Z86.19 Personal history of other infectious and parasitic diseases | CPT/HCPCS: 15271; Q4131; Q4133 ==

== ENCOUNTER 2017-11-23 09:21 | Outpatient (RCR) | payer MEDICARE, MEDICAID | END 2017-12-22 | disposition home or self-care (01) | LOC: WCC 09:21 | DX: L97.322 Non-pressure chronic ulcer of left ankle with fat layer exposed (principal); Z94.4 Liver transplant status; Z96.649 Presence of unspecified artificial hip joint; Z86.19 Personal history of other infectious and parasitic diseases | CPT/HCPCS: G0463 ==

== ENCOUNTER 2020-02-20 14:26 | Outpatient (RCR) | payer MEDICARE, MEDICAID | END 2020-02-22 | disposition home or self-care (01) | LOC: WCC 14:26 | DX: L97.822 Non-pressure chronic ulcer of other part of left lower leg with fat layer exposed (principal); I87.312 Chronic venous hypertension (idiopathic) with ulcer of left lower extremity; Z94.4 Liver transplant status; Z96.649 Presence of unspecified artificial hip joint; Z86.19 Personal history of other infectious and parasitic diseases | CPT/HCPCS: 11042 ==

== ENCOUNTER 2020-02-27 14:29 | Outpatient (RCR) | payer MEDICARE, MEDICAID | END 2020-03-24 | disposition home or self-care (01) | LOC: WCC 14:29 | DX: L97.822 Non-pressure chronic ulcer of other part of left lower leg with fat layer exposed (principal); I87.312 Chronic venous hypertension (idiopathic) with ulcer of left lower extremity; Z94.4 Liver transplant status; Z96.649 Presence of unspecified artificial hip joint; K74.60 Unspecified cirrhosis of liver; Z86.19 Personal history of other infectious and parasitic diseases | CPT/HCPCS: 11042 ==

== ENCOUNTER 2020-03-26 14:06 | Outpatient (RCR) | payer MEDICARE, MEDICAID | END 2020-04-23 | disposition home or self-care (01) | LOC: WCC 14:06 | DX: L97.822 Non-pressure chronic ulcer of other part of left lower leg with fat layer exposed (principal); I87.312 Chronic venous hypertension (idiopathic) with ulcer of left lower extremity; Z96.649 Presence of unspecified artificial hip joint; Z94.4 Liver transplant status | CPT/HCPCS: G0463 ==